=== PATIENT | male | born 1940 | race Caucasian/White ===

== ENCOUNTER 2020-07-20 13:20 | Inpatient (IN) | payer OTHER, MEDICARE ==
[~2020-07-20] VITALS: Ht 170.1 cm; Wt 100.9 kg
--- NOTE | 2020-07-20 13:56 | ED General ---
General Chief Complaint: Abdominal/GI Problems Stated Complaint: BLOODY SPUTUM, BLACK STOOL History of Present Illness Date Seen by Provider: Jul 20, 2020 Time Seen by Provider: 13:51 Initial Comments 79-year-old male Presents with the following constellation of concerns he said he coughed up some blood tinged mucus today though he is not coughing any more than normal and is not short of breath he notes that he had some black material in his stools starting 2 days ago he does have a hemorrhoid didn't see any red blood he denies any history of GI bleeding on further questioning he has a couple purplish areas on his tongue and inside his right cheek that he's noticed but no bleeding in the mouth or nose bleeds [facility] denies knowledge of any leukemia or blood disorder he says he is on a whole slew medicines none of which are blood thinners is a diabetic on oral meds some blood pressure medication he can't tell me more specifics about his history denies fever or any increased cough has chronic pain in his right knee and both hips which has been bothering him quite a bit c/o has not slept well recently he's had splotchy red areas on his legs and easy bruising he feels for approximately 2 weeks denies alcohol use denies receiving chemotherapy or radiation treatment, denies any new prescriptions that we still don't know his meds Allergies and Home Medications Allergies Coded Allergies: No Known Drug Allergies (Unverified , 07/20/20) Patient Home Medication List Home Medication List Reviewed: Yes Review of Systems Review of Systems Constitutional: no symptoms reported EENTM: other (purple areas on tongue and inside right cheek) Respiratory: cough (baseline no different than usual), other (describes hemoptysis) Cardiovascular: no symptoms reported; No chest pain, No palpitations, No syncope Gastrointestinal: No abdominal pain; melena; No nausea, No vomiting; other (says he passed some black stool a few days ago it's mostly cleared at this point) Genitourinary: no symptoms reported Musculoskeletal: other (chronic pain knees and hips) Skin: other (claims diffuse reddened spots especially his legs and easy bruising) Past Rslnmtp-Cjbotw-Eiymwh Hx Patient Social History Recent Foreign Travel: No Contact w/Someone Who Travel: No Physical Exam Vital Signs Capillary Refill : Height, Weight, BMI Height: '" Weight: lbs. oz. kg; BMI Method: General Appearance: No Apparent Distress, Other (very des complexion protruberant abdomen which patient states is baseline) Neck: Supple Respiratory: Lungs Clear Cardiovascular: Regular Rate, Rhythm, Systolic Murmur, Other (at 10 sternal border patient says he's had for many years) Gastrointestinal: Normal Bowel Sounds, Non Tender, Soft, Distended (patient states is baseline, could not appreciate any [place] and a megaly all of the abdomen is rather tight and protuberant he has a small umbilical hernia nontender) Rectal: Normal Exam, Other (stool is brown but heme tested positive) Progress/Results/Core Measures Suspected Sepsis SIRS Temperature: Pulse: Respiratory Rate: Laboratory Tests 07/20/20 13:35: White Blood Count 7.6 Blood Pressure / Mean: Laboratory Tests 07/20/20 13:35: Creatinine 0.69, INR Comment 1.1, Platelet Count 0*L, Total Bilirubin 1.1H Results/Orders Lab Results Laboratory Tests Test 07/20/20 13:35 07/20/20 13:39 Range/Units White Blood Count 7.6 4.3-11.0 10^3/uL Red Blood Count 3.37 L 4.35-5.85 10^6/uL Hemoglobin 10.3 L 13.3-17.7 G/DL Hematocrit 31 L 40-54 % Mean Corpuscular Volume 91 80-99 FL Mean Corpuscular Hemoglobin 31 25-34 PG Mean Corpuscular Hemoglobin Concent 34 32-36 G/DL Red Cell Distribution Width 15.0 H 10.0-14.5 % Platelet Count 0 *L 130-400 10^3/uL Mean Platelet Volume 7.4-10.4 FL Immature Granulocyte % (Auto) 2 % Neutrophils (%) (Auto) 75 42-75 % Lymphocytes (%) (Auto) 7 L 12-44 % Monocytes (%) (Auto) 7 0-12 % Eosinophils (%) (Auto) 9 0-10 % Basophils (%) (Auto) 1 0-10 % Neutrophils # (Auto) 5.7 1.8-7.8 X 10^3 Lymphocytes # (Auto) 0.6 L 1.0-4.0 X 10^3 Monocytes # (Auto) 0.5 0.0-1.0 X 10^3 Eosinophils # (Auto) 0.7 H 0.0-0.3 10^3/uL Basophils # (Auto) 0.0 0.0-0.1 10^3/uL Immature Granulocyte # (Auto) 0.1 0.0-0.1 10^3/uL Neutrophils % (Manual) 77 % Lymphocytes % (Manual) 9 % Monocytes % (Manual) 8 % Eosinophils % (Manual) 2 % Basophils % (Manual) 1 % Metamyelocytes % 2 % Band Neutrophils 1 % Nucleated Red Blood Cells 1 Platelet Estimate 0 Polychromasia SLIGHT Prothrombin Time 14.6 12.2-14.7 SEC INR Comment 1.1 0.8-1.4 Sodium Level 133 L 135-145 MMOL/L Potassium Level 4.1 3.6-5.0 MMOL/L Chloride Level 100 98-107 MMOL/L Carbon Dioxide Level 23 21-32 MMOL/L Anion Gap 10 5-14 MMOL/L Blood Urea Nitrogen 23 H 7-18 MG/DL Creatinine 0.69 0.60-1.30 MG/DL Estimat Glomerular Filtration Rate > 60 BUN/Creatinine Ratio 33 Glucose Level 153 H 70-105 MG/DL Calcium Level 8.8 8.5-10.1 MG/DL Corrected Calcium 8.6 8.5-10.1 MG/DL Total Bilirubin 1.1 H 0.1-1.0 MG/DL Aspartate Amino Transf (AST/SGOT) 31 5-34 U/L Alanine Aminotransferase (ALT/SGPT) 24 0-55 U/L Alkaline Phosphatase 61 40-136 U/L Total Protein 6.8 6.4-8.2 GM/DL Albumin 4.2 3.2-4.5 GM/DL Glucometer 161 H 70-110 MG/DL My Orders Orders - LESLEE DE LA PAZ MD Iv Heplock-Insert (Order) (07/20/20 13:33) Cbc With Automated Diff (07/20/20 13:33) Protime With Inr (07/20/20 13:33) Comprehensive Metabolic Panel (07/20/20 13:33) Occult Blood Stool (07/20/20 13:36) Chest Pa/Lat (2 View) (07/20/20 13:50) Manual Differential (07/20/20 13:35) Vital Signs/I&O Capillary Refill : Progress Note : Progress Note Hemoglobin is 10.3 white blood count 7500 according to our lab his platelet count is 0 Chemistries - glucose 161 sodium 133 renal function normal creatinine 0.69 chest x-ray has been read as normal Assessment - severe thrombocytopenia with petechiae purpura suggestion of mild GI bleeding and hemoptysis this is a new finding cause is unknown at this time Patient's vital signs are stable he is not actively bleeding at this time He requests to go to the [facility] call [facility] to the [facility] to the charge nurse awaiting response from hospitalist Charge nurse [facility] calls back the hospitalist there does not feel they can provide the care necessary in this case they checked with the [facility] and were told there are no beds available so we are to revert back to the civilian system They said that wherever he is admitted should call them back within 48 hours to let them know about his hospitalization to secure payment Patient fine with staying local, will check with [place] hospitalist about potential admission pt accepted to medical floor [place] [facility] Departure Communication (Admissions) Time/Spoke to Admitting Phy: 15:03 Impression Primary Impression: Thrombocytopenia Disposition: ADMITTED INPATIENT Condition: Stable Admissions Decision to Admit Reason: Admit from ER (General) Decision to Admit/Date: Jul 20, 2020 Time/Decision to Admit Time: 15:04 Departure-Patient Inst. Referrals: NO,LOCAL PHYSICIAN (PCP/Family) Primary Care Physician LESLEE DE LA PAZ MD Jul 20, 2020 13:56
[2020-07-20 14:02] LABS: INR 1.1 (0.8-1.4); PROTHROMBIN TIME PATIENT 14.6 SEC (12.2-14.7)
[2020-07-20 14:06] LABS: WHITE BLOOD COUNT 7.6 10^3/uL (4.3-11.0)
[2020-07-20 14:07] LABS: HEMATOCRIT 31 % (40-54); HEMOGLOBIN 10.3 G/DL (13.3-17.7); MEAN CORPUSCULAR HEMOGLOBIN 31 PG (25-34); MEAN CORPUSCULAR HGB CONC 34 G/DL (32-36); MEAN CORPUSCULAR VOLUME 91 FL (80-99)
[2020-07-20 14:08] LABS: BASOPHILS % (AUTO) 1 % (0-10); EOSINOPHILS % (AUTO) 9 % (0-10); LYMPHOCYTES % (AUTO) 7 % (12-44); MONOCYTES % (AUTO) 7 % (0-12); NEUTROPHILS % (AUTO) 75 % (42-75); PLATELET COUNT 0 10^3/uL (130-400)
[2020-07-20 14:09] LABS: EOSINOPHILS # (AUTO) 0.7 10^3/uL (0.0-0.3); LYMPHOCYTES # (AUTO) 0.6 X 10^3 (1.0-4.0); MONOCYTES # (AUTO) 0.5 X 10^3 (0.0-1.0); NEUTROPHILS # (AUTO) 5.7 X 10^3 (1.8-7.8)
--- NOTE | 2020-07-20 14:14 | Diagnostic Imaging Report ---
INDICATION: Hemoptysis. FINDINGS: There is no focal infiltrate, failure, effusion, or pneumothorax. IMPRESSION: No acute appearing abnormality. Dictated by: Dictated on workstation # [id number]
[2020-07-20 14:17] LABS: ALANINE AMINOTRANSFERASE 24 U/L (0-55); ALBUMIN 4.2 GM/DL (3.2-4.5); ALKALINE PHOSPHATASE 61 U/L (40-136); BILIRUBIN,TOTAL 1.1 MG/DL (0.1-1.0); BUN/CREATININE RATIO 33; CALCIUM 8.8 MG/DL (8.5-10.1); CARBON DIOXIDE 23 MMOL/L (21-32); CHLORIDE 100 MMOL/L (98-107); CREATININE SERUM 0.69 MG/DL (0.60-1.30); GFR ESTIMATED > 60; GLUCOSE 153 MG/DL (70-105); POTASSIUM 4.1 MMOL/L (3.6-5.0); SODIUM 133 MMOL/L (135-145); TOTAL PROTEIN 6.8 GM/DL (6.4-8.2)
[2020-07-20 14:18] LABS: BAND NEUTROPHILS 1 %; BASOPHILS % (MANUAL) 1 %; EOSINOPHILS % (MANUAL) 2 %; LYMPHOCYTES % (MANUAL) 9 %; METAMYELOCYTES % 2 %; MONOCYTES % (MANUAL) 8 %; NEUTROPHILS % (MANUAL) 77 %; NUCLEATED RED BLOOD CELLS 1
[2020-07-20 14:19] LABS: PLATELET ESTIMATE 0; POLYCHROMASIA SLIGHT
[2020-07-20 18:00] VITALS: BP 158/77
[2020-07-20] MEDS ORDERED: ACETAMINOPHEN 325 MG TABLET PO PRN (18:00)
[2020-07-20] MEDS ORDERED: ONDANSETRON 4 MG (ZOFRAN) ORAL DISSOLVE TAB PO PRN (18:00)
[2020-07-20] MEDS ORDERED: BISACODYL 10 MG SUPP (DULCOLAX) PR PRN (18:00)
[2020-07-20] MEDS ORDERED: ANTACID SUSP 30 ML UDC (MYLANTA) PO PRN (18:00)
[2020-07-20] MEDS ORDERED: predniSONE 20 MG TAB PO NR (18:00)
[2020-07-20] MEDS ORDERED: ONDANSETRON 4 MG/2 ML (SDV) Z0FRAN IV PRN (18:00)
[2020-07-20] MEDS ORDERED: polyethylene glycoL POWDER 17 GM (MIRALAX) PACK PO PRN (18:00)
--- NOTE | 2020-07-20 18:00 | NUR ---
Atif Saldana admitted to room 427-1, with an admitting diagnosis of thrombocytopenia, on 07/20/20 from [place] via , accompanied by .ATIF SALDANA introduced to surroundings, call light, bed controls, phone, TV, temperature control, lights, meal times, smoking policy, visitor policy, side rail policy, bathrooms and showers. Patient Rights given to patient in the handbook.ATIF SALDANA verbalizes understanding that [facility] is not responsible for the loss or damage to any personal effects or valuables that are kept in the patients posession during their hospitalization. ATIF SALDANA verbalizes understanding of Interdisciplinary Patient Education. Patient and/or family were informed about the Rapid Response Team and its purpose.
[2020-07-20 18:03] LABS: BASOPHILS % (AUTO) 1 % (0-10); HEMATOCRIT 30 % (40-54); HEMOGLOBIN 10.2 g/dL (13.3-17.7); MEAN CORPUSCULAR HGB CONC 34 g/dL (32-36); MONOCYTES # (AUTO) 0.5 10^3/uL (0.0-1.0)
[2020-07-20 18:06] LABS: ABSOLUTE RETIC # 230 10e9/uL (24-90); EOSINOPHILS # (AUTO) 0.1 10^3/uL (0.0-0.3); EOSINOPHILS % (AUTO) 1 % (0-10); LYMPHOCYTES # (AUTO) 0.6 10^3/uL (1.0-4.0); LYMPHOCYTES % (AUTO) 7 % (12-44); MEAN CORPUSCULAR HEMOGLOBIN 31 pg (25-34); MEAN CORPUSCULAR VOLUME 92 fL (80-99); MONOCYTES % (AUTO) 6 % (0-12); NEUTROPHILS # (AUTO) 6.5 10^3/uL (1.8-7.8); NEUTROPHILS % (AUTO) 83 % (42-75); RETICULOCYTE % 6.99 % (0.50-2.40); WHITE BLOOD COUNT 7.9 10^3/uL (4.3-11.0)
[2020-07-20 18:12] LABS: PLATELET COUNT 1 10^3/uL (130-400)
--- NOTE | 2020-07-20 18:13 | NUR ---
Dr. Baldwin notified at this time of critical lab result of platelets 1.0 No further orders at this time.
[2020-07-20 18:16] LABS: BAND NEUTROPHILS 0 %; BASOPHILS % (MANUAL) 0 %; EOSINOPHILS % (MANUAL) 1 %; LYMPHOCYTES % (MANUAL) 3 %; MONOCYTES % (MANUAL) 4 %; NEUTROPHILS % (MANUAL) 92 %; RBC MORPH NORMAL
--- NOTE | 2020-07-20 18:28 | History & Physical-Hospitalist ---
History of Present Illness HPI/Chief Complaint Atif Saldana is an 79-year-old male with past medical history of hypertension, diabetes, BPH, GERD, seizure disorder, osteoarthritis, who presented with abnormal bleeding. He reports that he coughed up some blood this morning. He says it was dark red and like a big clot. He also reports having black stools. He says that his gums were bleeding a little bit. He has a new rash on his legs. He denies any fevers or chills. He denies any headache or vision changes. He denies any chest pain. He denies any shortness of breath or cough. He denies any abdominal pain. He denies any nausea or vomiting. He denies any diarrhea. He does not take any blood thinners. He does not take aspirin. Source: patient Exam Limitations: no limitations Date Seen 07/20/20 Time Seen by a Provider: 17:30 Attending Physician Kaela Lyn MD PCP Jose Kennedy MD Referring Physician Date of Admission Jul 20, 2020 at 17:25 Home Medications & Allergies Home Medications Reviewed patient Home Medication Reconciliation performed by pharmacy medication reconciliations electrical cad technician and/or nursing. Patients Allergies have been reviewed. Allergies Allergies Coded Allergies No Known Drug Allergies (Unverified07/20/20) Past Dzrcjxc-Obopkv-Ljcrhf Hx Past Med/Social Hx: Reviewed Nursing Past Med/Soc Hx Patient Social History Alcohol Use: Occasionally Uses Recreational Drug Use: No Smoking Status: Never a Smoker 2nd Hand Smoke Exposure: No Recent Foreign Travel: No Contact w/other who traveled: No Recent Hopitalizations: No Recent Infectious Disease Expo: No Immunizations Up To Date Date of Pneumonia Vaccine: Jul 20, 2017 Seasonal Allergies Seasonal Allergies: No Past Medical History Surgeries: Appendectomy, Orthopedic Cardiac: High Cholesterol, Hypertension Genitourinary: Benign Prostatic Hyperpl Gastrointestinal: Abdominal Hernia, Gastroesophageal Reflux Musculoskeletal: Arthritis Endocrine: Diabetes, Non-Insulin dep Cancer: Skin Psychosocial: Anxiety History of Blood Disorders: No Review of Systems Constitutional: no symptoms reported EENTM: no symptoms reported Respiratory: hemoptysis Cardiovascular: no symptoms reported Gastrointestinal: melena Genitourinary: no symptoms reported Musculoskeletal: no symptoms reported Skin: rash Psychiatric/Neurological: No Symptoms Reported Physical Exam Physical Exam Vital Signs Vital Signs - First Documented 07/20/20 13:25 Temp 36.0 Pulse 75 Resp 16 B/P (MAP) 163/77 (105) Pulse Ox 97 O2 Delivery Room Air Capillary Refill : Less Than 3 Seconds Height, Weight, BMI Height: '" Weight: lbs. oz. kg; 37.49 BMI Method: General Appearance: No Apparent Distress, Obese HEENT: PERRL/EOMI, Moist Mucous Membranes Respiratory: Lungs Clear, Normal Breath Sounds, No Respiratory Distress Cardiovascular: Regular Rate, Rhythm, No Edema, No Murmur Gastrointestinal: Normal Bowel Sounds, Non Tender, Soft Extremity: Non Tender, No Pedal Edema Neurologic/Psychiatric: Alert, Oriented x3, No Motor/Sensory Deficits, Normal Mood/Affect Skin: Petechia Results Results/Procedures Labs Laboratory Tests 07/20/20 13:35 07/20/20 17:50 Patient resulted labs reviewed. Imaging: Reviewed Imaging Report Assessment/Plan Admission Diagnosis Acute idiopathic thrombocytopenic purpura Admission Status: Inpatient Order (span 2 midnights) Reason for Inpatient Admission: ITP requiring IVIG and high-dose steroid therapy Assessment and Plan Acute ITP Platelets undetectable New petechial rash No other significant lab abnormalities Hematology consulted, appreciate assistance Peripheral smear on arrival showed no platelets, no blasts, no schistocytes, consistent with ITP Begin prednisone 80 mg daily Begin IVIG 60 g daily T2DM Sliding scale insulin HTN Continue lisinopril BPH Continue Flomax Seizure disorder Continue primidone DVT Prophylaxis: contraindicated due to severe thrombocytopenia Diagnosis/Problems Diagnosis/Problems (1) Acute idiopathic thrombocytopenic purpura Status: Acute (2) Normocytic anemia Status: Acute (3) HTN (hypertension) Status: Chronic (4) T2DM (type 2 diabetes mellitus) Status: Chronic (5) BPH (benign prostatic hyperplasia) Status: Chronic (6) GERD (gastroesophageal reflux disease) Status: Chronic (7) Seizure disorder Status: Chronic Clinical Quality Measures DVT/VTE Risk/Contraindication: Risk Factor Score Per Nursin RFS Level Per Nursing on Admit: 2=Moderate KAELA LYN MD Jul 20, 2020 18:28
[2020-07-20] MEDS ORDERED: FLU QUAD HIGH DOSE 240 MCG/0.7 ML 2020-21 (FLUZONE) IM ONE (18:30)
[2020-07-20] MEDS: TAMSULOSIN 0.4 MG (FLOMAX) CAP PO SCH (18:36)
[2020-07-20] MEDS ORDERED: IVIG IV SCH ×2 (19:00)
[2020-07-20 20:12] VITALS: BP 181/91
--- NOTE | 2020-07-20 20:25 | NUR ---
Dr. Golden notified of increased BP at 181/91 with hr at 80 and that pt takes Lisinopril 10mg daily. New order rec to give one time dose of Norvasc 5mg po and Clonidine 0.1mg po q 4 hrs prn SBP > 170.
[2020-07-20] MEDS ORDERED: amLODIPine 5 MG (NORVASC) TAB PO ONE (20:30)
[2020-07-20] MEDS ORDERED: amLODIPine 5 MG (NORVASC) TAB ONE (20:31)
[2020-07-20] MEDS ORDERED: PRIMIDONE 50 MG TAB (MYSOLINE) PO ONE (20:33)
[2020-07-20] MEDS: SENNOSIDES 8.6 MG (SENOKOT) TAB PO SCH (20:40)
[2020-07-20] MEDS: PRIMIDONE 50 MG TAB (MYSOLINE) PO SCH (20:40)
[2020-07-20] MEDS: DOCUSATE SODIUM 100 MG (COLACE) CAP PO SCH (20:42)
[2020-07-20] MEDS: IMMUNE GLOBULIN IV SCH (20:45)
[2020-07-20] MEDS: inSUlin ASPART (NovoLOG) 1 UNIT/0.01 ML (CHARGE PER UNIT) SC SCH (20:50)
[2020-07-20 20:54] VITALS: BP 162/88
[2020-07-20 21:30] VITALS: BP 170/87
[2020-07-20 22:00] VITALS: BP 183/88
--- NOTE | 2020-07-20 22:03 | NUR ---
[facility] asked for clarification that Dr. Golden wanted Clonidine PRN ordered for HTN. Pharmacists states that Hydralazine is better option for an 79 year old because of risk for rebound HTN. Dr. Golden clarified to use Clonidine PRN for SBP > 170. [facility] notified.
[2020-07-20] MEDS: cloNIDine 0.1 MG (CATAPRES) TAB PO PRN (22:11)
[2020-07-20] MEDS ORDERED: METHYL SALICYLATE TOP (22:49)
[2020-07-20] MEDS ORDERED: FURO20TA4 PO (22:49)
[2020-07-20] MEDS ORDERED: LISI-552 PO (22:49)
[2020-07-20] MEDS ORDERED: IBUP-1780 PO (22:49)
[2020-07-20] MEDS ORDERED: MENTHOL TOP (22:49)
[2020-07-20] MEDS ORDERED: METF-397 PO (22:58)
[2020-07-20] MEDS ORDERED: PRIM50TA33 PO (22:58)
[2020-07-20] MEDS ORDERED: OMEP20CA18 PO (22:58)
[2020-07-20 23:00] VITALS: BP 169/92
[2020-07-20] MEDS ORDERED: SILD100T67 PO (23:14)
[2020-07-20] MEDS ORDERED: TMSL.4C PO (23:20)
[2020-07-21] VITALS (14 sets, daily range): BP systolic 132–196; BP diastolic 67–95
[2020-07-21] MEDS: MELATONIN 3 MG TABLET PO PRN (00:13)
[2020-07-21] MEDS: inSUlin ASPART (NovoLOG) 1 UNIT/0.01 ML (CHARGE PER UNIT) SC SCH ×4 (05:20→20:59)
[2020-07-21 06:25] LABS: BASOPHILS % (AUTO) 0 % (0-10); EOSINOPHILS % (AUTO) 0 % (0-10); HEMATOCRIT 27 % (40-54); HEMOGLOBIN 9.1 g/dL (13.3-17.7); LYMPHOCYTES # (AUTO) 0.3 10^3/uL (1.0-4.0); LYMPHOCYTES % (AUTO) 5 % (12-44); MEAN CORPUSCULAR HEMOGLOBIN 31 pg (25-34); MEAN CORPUSCULAR HGB CONC 34 g/dL (32-36); MEAN CORPUSCULAR VOLUME 93 fL (80-99); MEAN PLATELET VOLUME 12.5 fL (9.0-12.2); MONOCYTES # (AUTO) 0.2 10^3/uL (0.0-1.0); MONOCYTES % (AUTO) 4 % (0-12); NEUTROPHILS # (AUTO) 5.8 10^3/uL (1.8-7.8); NEUTROPHILS % (AUTO) 89 % (42-75); WHITE BLOOD COUNT 6.5 10^3/uL (4.3-11.0)
[2020-07-21 06:30] LABS: PLATELET COUNT 18 10^3/uL (130-400)
[2020-07-21 06:41] LABS: CHLORIDE 99 MMOL/L (98-107); POTASSIUM 4.5 MMOL/L (3.6-5.0)
[2020-07-21 06:42] LABS: CALCIUM 8.2 MG/DL (8.5-10.1); GLUCOSE 206 MG/DL (70-105)
[2020-07-21 06:44] LABS: CARBON DIOXIDE 20 MMOL/L (21-32)
[2020-07-21 06:46] LABS: CREATININE SERUM 0.77 MG/DL (0.60-1.30); GFR ESTIMATED > 60
[2020-07-21 06:47] LABS: BUN/CREATININE RATIO 30
[2020-07-21 06:49] LABS: SODIUM 125 MMOL/L (135-145)
[2020-07-21] MEDS: PRIMIDONE 50 MG TAB (MYSOLINE) PO SCH ×2 (09:04→17:32)
[2020-07-21] MEDS: DOCUSATE SODIUM 100 MG (COLACE) CAP PO SCH ×2 (09:04→20:07)
[2020-07-21] MEDS: predniSONE 20 MG TAB PO SCH (09:04)
[2020-07-21] MEDS: SENNOSIDES 8.6 MG (SENOKOT) TAB PO SCH ×2 (09:04→20:07)
[2020-07-21] MEDS: PANTOPRAZOLE 40 MG (PROTONIX) TAB PO SCH (09:04)
[2020-07-21] MEDS: lisINopril 40 MG (PRINIVIL) TABLET PO SCH (09:06)
--- NOTE | 2020-07-21 09:30 | NUR ---
Per Dr. Baldwin's request, I notified Nurse Garcia of reports from [facility] that they were on diversion for this patient and were unable to accept him. They reported to Dr. Baldwin that they would be willing to authorize admission to our hospital for the needed medical treatment but would need to be notified of admission and have clinical sent to them within 48hr.
--- NOTE | 2020-07-21 10:20 | CONSULTATION REPORT ---
DATE OF SERVICE: 07/21/2020 The patient is admitted to room 427. PHYSICIAN REQUESTING CONSULTATION: Dr. Kaela [facility]. PRIMARY PHYSICIAN: Dr. Jose Kennedy. IMPRESSION: 1. An 79-year-old male admitted to the hospital with hemoptysis, bleeding gums and melena of few days' duration. 2. Evaluation at [facility] showed severe thrombocytopenia with platelet count undetectable. 3. No recent insect bites, new medications or viral illnesses. 4. Clinically consistent with acute ITP. 5. Agree with inpatient admission because of acute ITP and evidence of bleeding. 6. Start the patient on IVIG 0.5 grams per kilogram daily x2. 7. Start the patient on prednisone 1 mg/kg daily morning with food. 8. Monitor CBC serially. 9. If the patient develops symptomatic anemia, he may need packed red blood cell transfusion. 10. May obtain serum iron studies to rule out secondary iron deficiency due to bleeding. BRIEF HISTORY: The patient is an 79-year-old male who started noticing a rash in his lower extremities several days before admission. He also noticed dark stools for a few days and on the day of admission and complained of bleeding from his gums and coughed up blood. Because of this, he went to [facility] for evaluation. He was noted to have severe thrombocytopenia with platelets undetectable. Because of this, he was transferred to [facility] for inpatient management. PAST MEDICAL HISTORY: Significant for hypertension, diabetes mellitus type 2, gastroesophageal reflux disease, seizure disorder and osteoarthritis. PAST SURGICAL HISTORY: Include appendectomy and orthopedic surgery. 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 SOCIAL HISTORY: The patient lives in [place], [place]. No history of tobacco use, and uses alcohol socially, but no history of binge drinking. No history of recreational drug use. He has served in the , but denied any exposure to chemicals or radiation. FAMILY HISTORY: Unremarkable with no significant hematologic problems or malignancies that the patient knows of. PHYSICAL EXAMINATION: GENERAL: Showed elderly male, moderately obese, awake and oriented, in no acute distress. VITAL SIGNS: Temperature was 36.4 degrees centigrade, pulse rate of 62, respirations 20, blood pressure 153/69 with oxygen saturation of 99% on room air. HEENT: Normocephalic with alopecia. Extraocular muscles intact, conjunctivae pink, oral mucosa moist with purpura present on his tongue and mucosal surfaces. No active bleeding noted. NECK: Supple, with no JVD. No cervical, supraclavicular or axillary lymphadenopathy palpable. CHEST: Symmetrical. LUNGS: Fairly clear to auscultation without wheezes or rales. CARDIOVASCULAR: Regular in rate and rhythm. No murmurs or gallops heard. ABDOMEN: Obese, soft, nontender with no hepatosplenomegaly or other masses palpable. EXTREMITIES: Showed no edema. Extensive petechiae noted in both lower extremities with coalescence in some areas. NEUROLOGIC: Showed no focal motor deficits. LABORATORY DATA: CBC done at [facility] showed WBC 7.6, hemoglobin 10.3, MCV 91, platelet count zero. Neutrophil count was 5.7, lymphocyte count 0.6, monocyte count 0.5 and eosinophil count 0.7. Repeat done at the time of admission to [facility] same evening showed WBC 7.9, hemoglobin 10.2 and platelet count 1000. Today morning CBC showed white count of 6.5, hemoglobin 9.1 and platelet count of 18,000 with neutrophil count 5.8 and lymphocyte count 0.3. The peripheral smear done at the time of admission to the hospital was reviewed by me. This showed severe thrombocytopenia with practically no platelets. Neutrophils appeared morphologically unremarkable with adequate granulation. No immature cells identified. Lymphocytes appeared somewhat reactive. Red blood cell morphology was unremarkable except for several teardrop cells and few polychromatophilic cells. Reticulocyte count at the time of admission was elevated at 230,000, probably related to bleeding. No schistocytes are identified. Chemistry panel at the time of admission showed sodium level of 133 with the rest of the electrolytes within normal limits. BUN was 23 and creatinine 0.69 with GFR more than 60 mL per minute. Nonfasting glucose was 153. Liver function studies were within normal limits except total bilirubin level of 1.1. Thank you for allowing me to participate in this patient's care. I will follow the patient with you and make appropriate recommendations. Job ID: [id number] DocumentID: [id number] Dictated Date: 07/21/2020 09:39:56 General Education Professor Date: 07/21/2020 10:19:41 Dictated By: GENARO MARK MD [facility]
[2020-07-21] MEDS ORDERED: METH57CR TP (10:49)
--- NOTE | 2020-07-21 10:50 | NUR ---
SPOKE WITH THE PT (THERE WAS A COPY OF HIS [facility] RECORDS ON HIS CHART) TO COMPLETE THE MED REC THE FOLLOWING ARE FILL DATES FROM THE [facility]: 04-26-2020 METFORMIN 500MG #180/90DS 05-07-2020 OMEPRAZOLE 20MG #180/90DS 05-07-2020 LISINOPRIL 20MG #45/90DS 05-08-2020 SILDENAFIL 100MG #12/90DS 05-08-2020 TAMSULOSIN 0.4MG #90/90DS 05-10-2020 FUROSEMIDE 20MG #30/60DS 05-10-2020 PRIMIDONE 50MG #270/90DS 06-23-2020 IBUPROFEN 800MG #180/60DS 06-24-2020 MENTHOL/M-SALICYLATE 10-15% #90/30DS PT DENIES TAKING ANY OTC MEDS. ON THE MED LIST IS HAS TRAMADOL 50MG THAT HAS A STATUS PENDING, WHEN I SPOKE WITH THE PT HE DENIES TAKING
--- NOTE | 2020-07-21 14:07 | NUR ---
"RD ASSESSMENT PMHx: HTN; DM; BPH; GERD; OA; seizure disorder; hypercholesterolemia; PT INTERACTION: Pt was awake and pleasant during nutrition assessment. Pt states current appetite is fair. Note avg PO intake 100% x2meal, per chart review. Pt states following a regular diet at home, and has no issues with chewing/swallowing food. Pt states some recent issues with constipation. Note last BM was 07/21, and pt currently on bowel regimen of colace BID; and senna BID, per chart review. Pt states no recent wt changes. Note unable to determine recent wt hx, per chart review. Pt states current DM management is good. Note unable to determine recent HbA1c, per chart review. ABNORMAL NUTRITION-RELATED LAB VALUES LOW: Na 125; Ca 8.2; HIGH: BUN 20; glu 206 Est. kcal needs: 1625 kcal | 15 kcal/kg Est. Pro needs: 87 g Pro | 0.8 g Pro/kg PES STATEMENT: Given current PO intake and appetite, no nutrition diagnosis at this time (NO-1.1) INTERVENTION: Continue with current diet order of CHO 60g/m 3snack diet. Offered and provided diet education on DM management. Provided reinforcement from previous educations (previous educations not given by this RD) on CHO counting and portion control. Pt verbalized understanding of information provided. Will continue to follow and reassess as pt needs, intake, and status change. Maninder Ge, MS RD LD"
[2020-07-21] MEDS ORDERED: CATHETER FLUSH 10 ML SYR IV PRN (16:00)
--- NOTE | 2020-07-21 16:07 | Progress Note - Hospitalist ---
Subjective HPI/CC On Admission Date Seen by Provider: Jul 21, 2020 Time Seen by Provider: 10:50 Atif Saldana is an 79-year-old male with past medical history of hypertension, diabetes, BPH, GERD, seizure disorder, osteoarthritis, who presented with abnormal bleeding. He reports that he coughed up some blood this morning. He says it was dark red and like a big clot. He also reports having black stools. He says that his gums were bleeding a little bit. He has a new rash on his legs. He denies any fevers or chills. He denies any headache or vision changes. He denies any chest pain. He denies any shortness of breath or cough. He denies any abdominal pain. He denies any nausea or vomiting. He denies any diarrhea. He does not take any blood thinners. He does not take aspirin. Subjective/Events-last exam he has not had any bleeding. He denies any melena. He did cough up some dark s putum. He has no other complaints or concerns. Objective Exam Vital Signs Vital Signs Date Time Temp Pulse Resp B/P (MAP) Pulse Ox O2 Delivery O2 Flow Rate FiO2 07/21/20 12:00 36.5 67 18 132/82 (99) 96 Room Air Capillary Refill : Less Than 3 Seconds General Appearance: No Apparent Distress, Obese Respiratory: Lungs Clear, Normal Breath Sounds, No Respiratory Distress Cardiovascular: Regular Rate, Rhythm, No Edema, No Murmur Gastrointestinal: Normal Bowel Sounds, Non Tender, Soft Extremity: Normal Inspection, Non Tender, No Pedal Edema Neurologic/Psychiatric: Alert, Oriented x3, No Motor/Sensory Deficits, Normal Mood/Affect Skin: Normal Color, Warm/Dry Results/Procedures Lab Laboratory Tests 07/20/20 17:50 07/21/20 06:11 Patient resulted labs reviewed. Imaging: Reviewed Imaging Report Assessment/Plan Assessment and Plan Assess & Plan/Chief Complaint Acute ITP Hematology consulted, appreciate assistance Peripheral smear on arrival showed no platelets, no blasts, no schistocytes, consistent with ITP platelets increasing, 18 this morning Continue prednisone 80 mg daily Continue IVIG 60 g daily Pseudohyponatremia secondary to IVIG, continue to monitor T2DM Sliding scale insulin HTN Continue lisinopril BPH Continue Flomax Seizure disorder Continue primidone DVT Prophylaxis: contraindicated due to severe thrombocytopenia Diagnosis/Problems Diagnosis/Problems (1) Acute idiopathic thrombocytopenic purpura Status: Acute (2) Hyponatremia Status: Acute (3) Normocytic anemia Status: Acute (4) HTN (hypertension) Status: Chronic (5) T2DM (type 2 diabetes mellitus) Status: Chronic (6) BPH (benign prostatic hyperplasia) Status: Chronic (7) GERD (gastroesophageal reflux disease) Status: Chronic (8) Seizure disorder Status: Chronic Clinical Quality Measures DVT/VTE Risk/Contraindication: Risk Factor Score Per Nursin RFS Level Per Nursing on Admit: 2=Moderate KARINE LYN MD Jul 21, 2020 16:07
[2020-07-21] MEDS: TAMSULOSIN 0.4 MG (FLOMAX) CAP PO SCH (17:32)
[2020-07-21] MEDS: IMMUNE GLOBULIN IV SCH (18:51)
[2020-07-21] MEDS: CATHETER FLUSH 10 ML SYR IV SCH (20:08)
[2020-07-22 05:11] VITALS: BP 152/85
[2020-07-22] MEDS: inSUlin ASPART (NovoLOG) 1 UNIT/0.01 ML (CHARGE PER UNIT) SC SCH ×4 (05:21→21:30)
[2020-07-22] MEDS: CATHETER FLUSH 10 ML SYR IV SCH ×3 (05:23→21:31)
[2020-07-22 06:52] LABS: HEMOGLOBIN 8.8 g/dL (13.3-17.7)
[2020-07-22 06:54] LABS: BASOPHILS % (AUTO) 0 % (0-10); EOSINOPHILS # (AUTO) 0.1 10^3/uL (0.0-0.3); EOSINOPHILS % (AUTO) 1 % (0-10); HEMATOCRIT 25 % (40-54); LYMPHOCYTES # (AUTO) 0.8 10^3/uL (1.0-4.0); LYMPHOCYTES % (AUTO) 9 % (12-44); MEAN CORPUSCULAR HEMOGLOBIN 33 pg (25-34); MEAN CORPUSCULAR HGB CONC 35 g/dL (32-36); MEAN CORPUSCULAR VOLUME 94 fL (80-99); MEAN PLATELET VOLUME 12.4 fL (9.0-12.2); MONOCYTES # (AUTO) 0.9 10^3/uL (0.0-1.0); MONOCYTES % (AUTO) 10 % (0-12); NEUTROPHILS # (AUTO) 6.6 10^3/uL (1.8-7.8); NEUTROPHILS % (AUTO) 77 % (42-75); WHITE BLOOD COUNT 8.5 10^3/uL (4.3-11.0)
[2020-07-22 07:03] LABS: PLATELET COUNT 1 10^3/uL (130-400)
[2020-07-22 07:07] LABS: BUN/CREATININE RATIO 35; CALCIUM 7.9 MG/DL (8.5-10.1); CARBON DIOXIDE 19 MMOL/L (21-32); CHLORIDE 98 MMOL/L (98-107); CREATININE SERUM 0.83 MG/DL (0.60-1.30); GFR ESTIMATED > 60; GLUCOSE 142 MG/DL (70-105); POTASSIUM 3.6 MMOL/L (3.6-5.0)
[2020-07-22 07:17] LABS: SODIUM 125 MMOL/L (135-145)
[2020-07-22 07:45] VITALS: BP 154/80
[2020-07-22] MEDS: SENNOSIDES 8.6 MG (SENOKOT) TAB PO SCH ×2 (08:37→19:41)
[2020-07-22] MEDS: lisINopril 40 MG (PRINIVIL) TABLET PO SCH (08:37)
[2020-07-22] MEDS: DOCUSATE SODIUM 100 MG (COLACE) CAP PO SCH ×2 (08:37→19:41)
[2020-07-22] MEDS: PANTOPRAZOLE 40 MG (PROTONIX) TAB PO SCH (08:37)
[2020-07-22] MEDS: predniSONE 20 MG TAB PO SCH (08:37)
[2020-07-22] MEDS: PRIMIDONE 50 MG TAB (MYSOLINE) PO SCH ×2 (08:37→17:16)
[2020-07-22 11:30] VITALS: BP 168/85
--- NOTE | 2020-07-22 13:42 | Progress Note - Hospitalist ---
Subjective HPI/CC On Admission Date Seen by Provider: Jul 22, 2020 Time Seen by Provider: 10:50 Atif Saldana is an 79-year-old male with past medical history of hypertension, diabetes, BPH, GERD, seizure disorder, osteoarthritis, who presented with abnormal bleeding. He reports that he coughed up some blood this morning. He says it was dark red and like a big clot. He also reports having black stools. He says that his gums were bleeding a little bit. He has a new rash on his legs. He denies any fevers or chills. He denies any headache or vision changes. He denies any chest pain. He denies any shortness of breath or cough. He denies any abdominal pain. He denies any nausea or vomiting. He denies any diarrhea. He does not take any blood thinners. He does not take aspirin. Subjective/Events-last exam he reports that he had some mouth and nose bleeding. He reports having a dark stool. He has no other complaints or concerns. Objective Exam Vital Signs Vital Signs Date Time Temp Pulse Resp B/P (MAP) Pulse Ox O2 Delivery O2 Flow Rate FiO2 07/22/20 11:30 36.5 80 18 168/85 (112) 99 Room Air Capillary Refill : Less Than 3 Seconds General Appearance: No Apparent Distress, Obese Respiratory: Lungs Clear, Normal Breath Sounds, No Respiratory Distress Cardiovascular: Regular Rate, Rhythm, No Edema, No Murmur Gastrointestinal: Normal Bowel Sounds, Non Tender, Soft Extremity: Normal Inspection, Non Tender, No Pedal Edema Neurologic/Psychiatric: Alert, Oriented x3, No Motor/Sensory Deficits, Normal Mood/Affect Skin: Normal Color, Warm/Dry Results/Procedures Lab Laboratory Tests 07/22/20 06:20 Patient resulted labs reviewed. Imaging: Reviewed Imaging Report Assessment/Plan Assessment and Plan Assess & Plan/Chief Complaint Acute ITP Hematology consulted, appreciate assistance Peripheral smear on arrival showed no platelets, no blasts, no schistocytes, consistent with ITP platelets decreased, 1 this morning Continue prednisone 80 mg daily s/p IVIG 60 g daily x 2 days may require bone marrow biopsy Pseudohyponatremia secondary to IVIG, continue to monitor T2DM Sliding scale insulin HTN Continue lisinopril BPH Continue Flomax Seizure disorder Continue primidone DVT Prophylaxis: contraindicated due to severe thrombocytopenia Diagnosis/Problems Diagnosis/Problems (1) Acute idiopathic thrombocytopenic purpura Status: Acute (2) Hyponatremia Status: Acute (3) Normocytic anemia Status: Acute (4) HTN (hypertension) Status: Chronic (5) T2DM (type 2 diabetes mellitus) Status: Chronic (6) BPH (benign prostatic hyperplasia) Status: Chronic (7) GERD (gastroesophageal reflux disease) Status: Chronic (8) Seizure disorder Status: Chronic Clinical Quality Measures DVT/VTE Risk/Contraindication: Risk Factor Score Per Nursin RFS Level Per Nursing on Admit: 2=Moderate KARINE LYN MD Jul 22, 2020 13:42
--- NOTE | 2020-07-22 14:13 | NUR ---
CM/SS: Visited with pt as to plan for discharge - Pt is connected with the NH and is seen in the [place] clinic. Plan: To be determined - Pt is from home - and has lived independently in [place] Summary: Pt reports that [facility] [place]. They are the ones who sent him to the ER in [place] and they transferred him to this hospital. Pt reports he was feeling better and that his blood count had come up. However, he indicates that today his numbers has fallen, so he is unsure as to what is going on. Pt reports having had a aneurism in the past and that he received help and was desiree. Pt does not think that he will need anything at time of discharge, he is educated that if he needs something, we will work to set it up at time of discharged. Pt verbalizes understanding. This worker will follow up.
[2020-07-22 16:00] VITALS: BP 170/90
[2020-07-22] MEDS: cloNIDine 0.1 MG (CATAPRES) TAB PO PRN (16:13)
--- NOTE | 2020-07-22 16:58 | Progress Note ---
Standard Progress Note Progress Notes/Assess & Plan Date Seen by a Provider: Jul 22, 2020 Time Seen by a Provider: 16:55 Progress/Assessment & Plan 79-year-old male admitted with severe thrombocytopenia and mucosal bleeding. Clinically consistent with ITP and started on treatment with IVIG 2 days and high-dose steroids. Patient doing better clinically with no obvious bleeding. The oral lesions have disappeared. No new crops of petechiae on the lower extremities. Ecchymosis on both arms and forearms which are old. Lab work reviewed from today with platelet count 1000. Will repeat CBC this evening and CBC with the smear tomorrow morning. If platelet count continues to be low tomorrow, will recommend bone marrow aspiration and biopsy. Will follow patient with you. GENARO MARK Jul 22, 2020 16:58
[2020-07-22 17:13] LABS: HEMATOCRIT 30 % (40-54); HEMOGLOBIN 10.2 g/dL (13.3-17.7); MEAN CORPUSCULAR HEMOGLOBIN 32 pg (25-34); MEAN CORPUSCULAR HGB CONC 34 g/dL (32-36); MEAN CORPUSCULAR VOLUME 93 fL (80-99); WHITE BLOOD COUNT 8.4 10^3/uL (4.3-11.0)
[2020-07-22 17:16] LABS: PLATELET COUNT 1 10^3/uL (130-400)
[2020-07-22] MEDS: TAMSULOSIN 0.4 MG (FLOMAX) CAP PO SCH (17:16)
[2020-07-22 20:00] VITALS: BP 143/81
[2020-07-23] VITALS (12 sets, daily range): BP systolic 119–191; BP diastolic 15–95
[2020-07-23] MEDS: inSUlin ASPART (NovoLOG) 1 UNIT/0.01 ML (CHARGE PER UNIT) SC SCH ×4 (05:01→21:00)
[2020-07-23] MEDS: CATHETER FLUSH 10 ML SYR IV SCH ×3 (05:01→21:12)
[2020-07-23 06:31] LABS: BASOPHILS % (AUTO) 0 % (0-10); EOSINOPHILS # (AUTO) 0.1 10^3/uL (0.0-0.3); EOSINOPHILS % (AUTO) 1 % (0-10); HEMATOCRIT 28 % (40-54); HEMOGLOBIN 9.7 g/dL (13.3-17.7); LYMPHOCYTES # (AUTO) 0.9 10^3/uL (1.0-4.0); LYMPHOCYTES % (AUTO) 10 % (12-44); MEAN CORPUSCULAR HEMOGLOBIN 32 pg (25-34); MEAN CORPUSCULAR HGB CONC 35 g/dL (32-36); MEAN CORPUSCULAR VOLUME 92 fL (80-99); MONOCYTES # (AUTO) 0.9 10^3/uL (0.0-1.0); MONOCYTES % (AUTO) 9 % (0-12); NEUTROPHILS # (AUTO) 7.5 10^3/uL (1.8-7.8); NEUTROPHILS % (AUTO) 78 % (42-75); WHITE BLOOD COUNT 9.6 10^3/uL (4.3-11.0)
[2020-07-23 06:35] LABS: CHLORIDE 97 MMOL/L (98-107); PLATELET COUNT 4 10^3/uL (130-400); POTASSIUM 3.7 MMOL/L (3.6-5.0); SODIUM 127 MMOL/L (135-145)
[2020-07-23 06:36] LABS: CALCIUM 8.3 MG/DL (8.5-10.1); GLUCOSE 137 MG/DL (70-105)
[2020-07-23 06:38] LABS: CARBON DIOXIDE 20 MMOL/L (21-32)
[2020-07-23 06:40] LABS: CREATININE SERUM 0.87 MG/DL (0.60-1.30); GFR ESTIMATED > 60
[2020-07-23 06:41] LABS: BUN/CREATININE RATIO 34
[2020-07-23 06:58] LABS: BAND NEUTROPHILS 2 %; EOSINOPHILS % (MANUAL) 3 %; LYMPHOCYTES % (MANUAL) 10 %; METAMYELOCYTES % 1 %; MONOCYTES % (MANUAL) 5 %; NEUTROPHILS % (MANUAL) 79 %
[2020-07-23 06:59] LABS: RBC MORPH NORMAL
[2020-07-23] MEDS: lisINopril 40 MG (PRINIVIL) TABLET PO SCH (08:07)
[2020-07-23] MEDS: DOCUSATE SODIUM 100 MG (COLACE) CAP PO SCH ×2 (08:07→20:59)
[2020-07-23] MEDS: predniSONE 20 MG TAB PO SCH (08:07)
[2020-07-23] MEDS: SENNOSIDES 8.6 MG (SENOKOT) TAB PO SCH ×2 (08:07→20:59)
[2020-07-23] MEDS: PRIMIDONE 50 MG TAB (MYSOLINE) PO SCH ×2 (08:07→17:10)
[2020-07-23] MEDS: PANTOPRAZOLE 40 MG (PROTONIX) TAB PO SCH (08:08)
[2020-07-23 13:23] LABS: ABSOLUTE RETIC # 237 10e9/uL (24-90); RETICULOCYTE % 7.95 % (0.50-2.40)
[2020-07-23] MEDS ORDERED: NS IV 1000 ML 1,000 ML IV STA (13:28)
[2020-07-23] MEDS ORDERED: fentaNYL INJECTION 100 MCG/2 ML AMP IVP ONE (13:30)
[2020-07-23] MEDS ORDERED: MIDAZOLAM 2 MG/2 ML (VERSED) VIAL IVP ONE (13:30)
[2020-07-23] MEDS ORDERED: LIDOCAINE 2% 20 ML (XYLOCAINE) VIAL INJ ONE (13:30)
--- NOTE | 2020-07-23 13:33 | Progress Note - Hospitalist ---
Subjective HPI/CC On Admission Date Seen by Provider: Jul 23, 2020 Time Seen by Provider: 10:15 Atif Saldana is an 79-year-old male with past medical history of hypertension, diabetes, BPH, GERD, seizure disorder, osteoarthritis, who presented with abnormal bleeding. He reports that he coughed up some blood this morning. He says it was dark red and like a big clot. He also reports having black stools. He says that his gums were bleeding a little bit. He has a new rash on his legs. He denies any fevers or chills. He denies any headache or vision changes. He denies any chest pain. He denies any shortness of breath or cough. He denies any abdominal pain. He denies any nausea or vomiting. He denies any diarrhea. He does not take any blood thinners. He does not take aspirin. Subjective/Events-last exam He had a nosebleed overnight. He is still been coughing up some blood. He has been having dark stools. He has a headache. He is not having any weakness. He denies any vision changes. He is not having any other complaints or concerns. Objective Exam Vital Signs Vital Signs Date Time Temp Pulse Resp B/P (MAP) Pulse Ox O2 Delivery O2 Flow Rate FiO2 07/23/20 12:00 36.1 72 20 191/86 (121) 93 Room Air Capillary Refill : Less Than 3 Seconds General Appearance: No Apparent Distress, Obese HEENT: PERRL/EOMI, Pharynx Normal Neck: Normal Inspection, Supple Respiratory: Lungs Clear, Normal Breath Sounds, No Respiratory Distress Cardiovascular: Regular Rate, Rhythm, No Edema, Systolic Murmur Gastrointestinal: Normal Bowel Sounds, Non Tender, Soft Extremity: Normal Inspection, Non Tender, No Pedal Edema Neurologic/Psychiatric: Alert, Oriented x3, No Motor/Sensory Deficits, Normal Mood/Affect Skin: Warm/Dry, Petechia Results/Procedures Lab Laboratory Tests 07/22/20 17:06 07/23/20 05:32 Patient resulted labs reviewed. Imaging: Reviewed Imaging Report Assessment/Plan Assessment and Plan Assess & Plan/Chief Complaint Acute ITP Hematology consulted, appreciate assistance Peripheral smear on arrival showed no platelets, no blasts, no schistocytes, consistent with ITP platelets remain critically low, 4 this morning Prednisone 80 mg daily s/p IVIG 60 g daily x 2 days planning for bone marrow biopsy today Pseudohyponatremia secondary to IVIG, continue to monitor T2DM Sliding scale insulin HTN Continue lisinopril BPH Continue Flomax Seizure disorder Continue primidone DVT Prophylaxis: contraindicated due to severe thrombocytopenia Diagnosis/Problems Diagnosis/Problems (1) Acute idiopathic thrombocytopenic purpura Status: Acute (2) Hyponatremia Status: Acute (3) Normocytic anemia Status: Acute (4) HTN (hypertension) Status: Chronic (5) T2DM (type 2 diabetes mellitus) Status: Chronic (6) BPH (benign prostatic hyperplasia) Status: Chronic (7) GERD (gastroesophageal reflux disease) Status: Chronic (8) Seizure disorder Status: Chronic Clinical Quality Measures DVT/VTE Risk/Contraindication: Risk Factor Score Per Nursin RFS Level Per Nursing on Admit: 2=Moderate KARINE LYN MD Jul 23, 2020 13:33
[2020-07-23] MEDS ORDERED: LIDOCAINE 1% INJ 20 ML 20 ML VIAL INJ ONE (13:45)
--- NOTE | 2020-07-23 13:50 | NUR ---
PATIENT TO CT FOR BONE MARROW BIOPSY AT THIS TIME WITH ABHISHEK CALLE. THIS RN WILL ASSUME CARE OF THIS PATIENT WHEN HE ARRIVES BACK TO THIS FLOOR.
--- NOTE | 2020-07-23 14:45 | Pre-Op Note & Conscious Sedat ---
Pre-Operative Progress Note H&P Reviewed The H&P was reviewed, patient examined and no changes noted. Date H&P Reviewed: Jul 23, 2020 Time H&P Reviewed: 13:00 Pre-Op Diagnosis: thrombocytopenia Conscious Sedation Pre-Proced Time 13:00 ASA Score 2 For ASA 3 and 4: Consider anesthesia and medical clearance. Also, for patients with a history of failed moderate sedation consider anesthesia. Airway Lungs Heart ASA score ASA 1: a normal healthy patient ASA 2: a patient with a mild systemic disease (mid diabetes, controlled hypertension, obesity ASA 3: a patient with a severe systemic disease that limits activity (angina, COPD, prior Myocardial infarction) ASA 4: a patient with an incapacitating disease that is a constant threat to life (CHF, renal failure) ASA 5: a moribund patient not expected to survive 24 hrs. (ruptured aneurysm) ASA 6: a declared brain- patient whose organs are being harvested. For emergent operations, add the letter E after the classification Mallampati Classification Grade 2 Sedation Plan Analgesia, Amnesia, Plan communicated to team members, Discussed options with patient/fam, Discussed risks with patient/fam The patient is an appropriate candidate to undergo the planned procedure, sedation, and anesthesia. The patient immediately re-assessed prior to indication. AMY BLACK MD Jul 23, 2020 14:45
--- NOTE | 2020-07-23 15:11 | Diagnostic Imaging Report ---
INDICATION: Thrombocytopenia. TECHNIQUE: Patient was brought to the CT suite and placed on the table in prone position. Axial imaging through the pelvis was performed to evaluate appropriate entry site. The low back was prepped and draped in usual sterile fashion. Procedure was performed utilizing conscious sedation with radiology nursing and constant patient monitoring. Patient was administered 50 mg of fentanyl intravenously and 1 mg of Versed intravenously. Total procedure time was 4 minutes. A small amount of 1% lidocaine was utilized for local anesthesia. Bone marrow biopsy needle was advanced and placed with its tip along the posterior cortex of the right iliac bone. The needle was advanced through the cortex utilizing a bone marrow drill. Two bone marrow aspirates were then obtained. The drill was then reapplied and a bone marrow core biopsy was performed. Needle was withdrawn and hemostasis was obtained using manual compression. Patient tolerated the procedure well and left the department in stable condition. IMPRESSION: Successful CT-guided bone marrow aspiration and biopsy, utilizing conscious sedation. Dictated by: Dictated on workstation # [id number]
--- NOTE | 2020-07-23 16:58 | Progress Note ---
Standard Progress Note Progress Notes/Assess & Plan Date Seen by a Provider: Jul 23, 2020 Time Seen by a Provider: 16:55 Progress/Assessment & Plan 79-year-old male admitted with severe thrombocytopenia and mucosal bleeding. Clinically consistent with ITP and started on treatment with IVIG 2 days and high-dose steroids. Patient doing better clinically with minimal hemoptysis and dark stools. The oral lesions have disappeared. No new crops of petechiae on the lower extremities. Ecchymosis on both arms and forearms which are old. Lab work reviewed from today with platelet count 4000. Will repeat CBC and CMP tomorrow morning. Completed bone marrow aspiration and biopsy today by IR and will await results. Will follow patient with you. GENARO MARK Jul 23, 2020 16:58
[2020-07-23] MEDS: TAMSULOSIN 0.4 MG (FLOMAX) CAP PO SCH (17:10)
[2020-07-23] MEDS: HYDROcodone/APAP 5 MG/325 MG (LORTAB) TAB PO PRN (21:01)
[2020-07-24 03:53] VITALS: BP 128/68
[2020-07-24] MEDS: inSUlin ASPART (NovoLOG) 1 UNIT/0.01 ML (CHARGE PER UNIT) SC SCH ×4 (06:05→20:54)
[2020-07-24] MEDS: CATHETER FLUSH 10 ML SYR IV SCH ×3 (06:05→20:57)
[2020-07-24 06:29] LABS: BASOPHILS % (AUTO) 0 % (0-10); EOSINOPHILS # (AUTO) 0.1 10^3/uL (0.0-0.3); EOSINOPHILS % (AUTO) 1 % (0-10); MEAN CORPUSCULAR HEMOGLOBIN 31 pg (25-34)
[2020-07-24 06:31] LABS: HEMATOCRIT 26 % (40-54); LYMPHOCYTES # (AUTO) 0.9 10^3/uL (1.0-4.0); LYMPHOCYTES % (AUTO) 11 % (12-44); MEAN CORPUSCULAR HGB CONC 35 g/dL (32-36); MEAN CORPUSCULAR VOLUME 91 fL (80-99); MONOCYTES # (AUTO) 0.9 10^3/uL (0.0-1.0); MONOCYTES % (AUTO) 10 % (0-12); NEUTROPHILS # (AUTO) 6.4 10^3/uL (1.8-7.8); NEUTROPHILS % (AUTO) 76 % (42-75); WHITE BLOOD COUNT 8.4 10^3/uL (4.3-11.0)
[2020-07-24 06:41] LABS: PLATELET COUNT 0 10^3/uL (130-400)
[2020-07-24 06:48] LABS: ALANINE AMINOTRANSFERASE 29 U/L (0-55); ALBUMIN 3.3 GM/DL (3.2-4.5); ALKALINE PHOSPHATASE 53 U/L (40-136); BUN/CREATININE RATIO 34; CARBON DIOXIDE 20 MMOL/L (21-32); CHLORIDE 99 MMOL/L (98-107); CREATININE SERUM 0.79 MG/DL (0.60-1.30); GFR ESTIMATED > 60; GLUCOSE 141 MG/DL (70-105); POTASSIUM 3.5 MMOL/L (3.6-5.0); SODIUM 128 MMOL/L (135-145)
[2020-07-24] MEDS: PRIMIDONE 50 MG TAB (MYSOLINE) PO SCH ×2 (07:52→17:13)
[2020-07-24] MEDS: DOCUSATE SODIUM 100 MG (COLACE) CAP PO SCH ×2 (07:52→19:58)
[2020-07-24] MEDS: SENNOSIDES 8.6 MG (SENOKOT) TAB PO SCH ×2 (07:52→19:58)
[2020-07-24] MEDS: PANTOPRAZOLE 40 MG (PROTONIX) TAB PO SCH (07:52)
[2020-07-24] MEDS: lisINopril 40 MG (PRINIVIL) TABLET PO SCH (07:52)
[2020-07-24] MEDS: predniSONE 20 MG TAB PO SCH (07:52)
[2020-07-24 08:00] VITALS: BP 153/81
[2020-07-24] MEDS: NS IV 500 ML 500 ML IV SCH (09:30)
[2020-07-24 11:22] LABS: HEMOGLOBIN 10.1 g/dL (13.3-17.7); MEAN PLATELET VOLUME 10.6 fL (9.0-12.2); WHITE BLOOD COUNT 10.1 10^3/uL (4.3-11.0)
--- NOTE | 2020-07-24 11:36 | Progress Note ---
Standard Progress Note Progress Notes/Assess & Plan Date Seen by a Provider: Jul 24, 2020 Time Seen by a Provider: 11:30 Progress/Assessment & Plan 79-year-old male admitted with severe thrombocytopenia and mucosal bleeding. Clinically consistent with ITP and started on treatment with IVIG 2 days and high-dose steroids. Patient doing better clinically but had a nosebleed this AM which took 40-45 minutes to stop. No new crops of petechiae and no oral lesions. Lab work reviewed from today with platelet count 0. Liver function studies normal Patient received 1 unit of platelets because of active bleeding and repeat CBC with platelet count of 5000. Will repeat CBC tomorrow morning. Completed bone marrow aspiration and biopsy yesterday and will await results. Start the patient on folic acid 1 mg daily because of rapid cell turnover. Will follow patient with you. GENARO MARK Jul 24, 2020 11:36
[2020-07-24 12:00] VITALS: BP 132/81
[2020-07-24 15:50] VITALS: BP 147/87
[2020-07-24] MEDS ORDERED: FOLIC ACID 1 MG TAB PO ONE (16:00)
--- NOTE | 2020-07-24 16:02 | Progress Note - Hospitalist ---
Subjective HPI/CC On Admission Date Seen by Provider: Jul 24, 2020 Time Seen by Provider: 09:40 Atif Saldana is an 79-year-old male with past medical history of hypertension, diabetes, BPH, GERD, seizure disorder, osteoarthritis, who presented with abnormal bleeding. He reports that he coughed up some blood this morning. He says it was dark red and like a big clot. He also reports having black stools. He says that his gums were bleeding a little bit. He has a new rash on his legs. He denies any fevers or chills. He denies any headache or vision changes. He denies any chest pain. He denies any shortness of breath or cough. He denies any abdominal pain. He denies any nausea or vomiting. He denies any diarrhea. He does not take any blood thinners. He does not take aspirin. Subjective/Events-last exam he is having a nosebleed this morning. It is finally getting under control. His nurse, Sharmin, has put in a lot of effort to getting the bleeding to stop. He reports no other complaints or concerns. Objective Exam Vital Signs Vital Signs Date Time Temp Pulse Resp B/P (MAP) Pulse Ox O2 Delivery O2 Flow Rate FiO2 07/24/20 15:50 36.4 90 18 147/87 (107) 100 Room Air 07/24/20 08:00 2.00 Capillary Refill : Less Than 3 Seconds General Appearance: No Apparent Distress, Obese Respiratory: Lungs Clear, Normal Breath Sounds, No Respiratory Distress Cardiovascular: Regular Rate, Rhythm, No Edema, No Murmur Gastrointestinal: Normal Bowel Sounds, Non Tender, Soft Extremity: Non Tender, No Pedal Edema Neurologic/Psychiatric: Alert, Oriented x3, No Motor/Sensory Deficits, Normal Mood/Affect Skin: Warm/Dry, Petechia Results/Procedures Lab Laboratory Tests 07/24/20 05:52 07/24/20 11:06 Patient resulted labs reviewed. Assessment/Plan Assessment and Plan Assess & Plan/Chief Complaint Acute ITP Hematology consulted, appreciate assistance Peripheral smear on arrival showed no platelets, no blasts, no schistocytes, consistent with ITP platelets remain critically low, 0 this morning Prednisone 80 mg daily s/p IVIG 60 g daily x 2 days Bone marrow biopsy performed 07/23, awaiting results May require rituximab infusion Pseudohyponatremia secondary to IVIG, continue to monitor T2DM Sliding scale insulin HTN Continue lisinopril BPH Continue Flomax Seizure disorder Continue primidone DVT Prophylaxis: contraindicated due to severe thrombocytopenia Diagnosis/Problems Diagnosis/Problems (1) Acute idiopathic thrombocytopenic purpura Status: Acute (2) Hyponatremia Status: Acute (3) Normocytic anemia Status: Acute (4) HTN (hypertension) Status: Chronic (5) T2DM (type 2 diabetes mellitus) Status: Chronic (6) BPH (benign prostatic hyperplasia) Status: Chronic (7) GERD (gastroesophageal reflux disease) Status: Chronic (8) Seizure disorder Status: Chronic Clinical Quality Measures DVT/VTE Risk/Contraindication: Risk Factor Score Per Nursin RFS Level Per Nursing on Admit: 2=Moderate KARINE LYN MD Jul 24, 2020 16:02
[2020-07-24] MEDS: TAMSULOSIN 0.4 MG (FLOMAX) CAP PO SCH (17:13)
[2020-07-24 19:18] VITALS: BP 144/85
[2020-07-24] MEDS: HYDROcodone/APAP 5 MG/325 MG (LORTAB) TAB PO PRN (20:55)
[2020-07-25] VITALS (7 sets, daily range): BP systolic 125–149; BP diastolic 69–82
[2020-07-25] MEDS: NS IV 500 ML 500 ML IV SCH ×2 (01:50→21:13)
[2020-07-25] MEDS: inSUlin ASPART (NovoLOG) 1 UNIT/0.01 ML (CHARGE PER UNIT) SC SCH ×4 (04:58→20:53)
[2020-07-25] MEDS: CATHETER FLUSH 10 ML SYR IV SCH ×3 (04:58→21:02)
[2020-07-25 06:57] LABS: BASOPHILS % (AUTO) 0 % (0-10); EOSINOPHILS # (AUTO) 0.2 10^3/uL (0.0-0.3); EOSINOPHILS % (AUTO) 2 % (0-10); HEMATOCRIT 29 % (40-54); HEMOGLOBIN 9.8 g/dL (13.3-17.7); LYMPHOCYTES # (AUTO) 1.1 10^3/uL (1.0-4.0); LYMPHOCYTES % (AUTO) 12 % (12-44); MEAN CORPUSCULAR HEMOGLOBIN 31 pg (25-34); MEAN CORPUSCULAR HGB CONC 34 g/dL (32-36); MEAN CORPUSCULAR VOLUME 91 fL (80-99); MONOCYTES # (AUTO) 0.8 10^3/uL (0.0-1.0); MONOCYTES % (AUTO) 9 % (0-12); NEUTROPHILS # (AUTO) 6.5 10^3/uL (1.8-7.8); NEUTROPHILS % (AUTO) 74 % (42-75); WHITE BLOOD COUNT 8.7 10^3/uL (4.3-11.0)
[2020-07-25 06:59] LABS: PLATELET COUNT 1 10^3/uL (130-400)
[2020-07-25 07:02] LABS: CHLORIDE 99 MMOL/L (98-107); POTASSIUM 3.6 MMOL/L (3.6-5.0); SODIUM 129 MMOL/L (135-145)
[2020-07-25 07:03] LABS: CALCIUM 8.2 MG/DL (8.5-10.1)
[2020-07-25 07:04] LABS: GLUCOSE 136 MG/DL (70-105)
[2020-07-25 07:05] LABS: CARBON DIOXIDE 21 MMOL/L (21-32)
[2020-07-25 07:07] LABS: CREATININE SERUM 0.88 MG/DL (0.60-1.30); GFR ESTIMATED > 60
[2020-07-25 07:08] LABS: BUN/CREATININE RATIO 33
[2020-07-25] MEDS: PANTOPRAZOLE 40 MG (PROTONIX) TAB PO SCH (09:18)
[2020-07-25] MEDS: predniSONE 20 MG TAB PO SCH (09:18)
[2020-07-25] MEDS: PRIMIDONE 50 MG TAB (MYSOLINE) PO SCH ×2 (09:19→17:29)
[2020-07-25] MEDS: SENNOSIDES 8.6 MG (SENOKOT) TAB PO SCH ×2 (09:19→21:02)
[2020-07-25] MEDS: DOCUSATE SODIUM 100 MG (COLACE) CAP PO SCH ×2 (09:19→20:53)
[2020-07-25] MEDS: lisINopril 40 MG (PRINIVIL) TABLET PO SCH (09:19)
[2020-07-25] MEDS: FOLIC ACID 1 MG TAB PO SCH (09:19)
--- NOTE | 2020-07-25 11:58 | Progress Note - Hospitalist ---
Subjective HPI/CC On Admission Date Seen by Provider: Jul 25, 2020 Time Seen by Provider: 09:10 Atif Saldana is an 79-year-old male with past medical history of hypertension, diabetes, BPH, GERD, seizure disorder, osteoarthritis, who presented with abnormal bleeding. He reports that he coughed up some blood this morning. He says it was dark red and like a big clot. He also reports having black stools. He says that his gums were bleeding a little bit. He has a new rash on his legs. He denies any fevers or chills. He denies any headache or vision changes. He denies any chest pain. He denies any shortness of breath or cough. He denies any abdominal pain. He denies any nausea or vomiting. He denies any diarrhea. He does not take any blood thinners. He does not take aspirin. Subjective/Events-last exam he denies any recurrent nose bleeding. He has not had any gum bleeding. He denies any dark stools. He has no complaints or concerns. Objective Exam Vital Signs Vital Signs Date Time Temp Pulse Resp B/P (MAP) Pulse Ox O2 Delivery O2 Flow Rate FiO2 07/25/20 08:44 98 Room Air 07/25/20 08:00 36.0 78 18 143/82 (102) 07/24/20 08:00 2.00 Capillary Refill : Less Than 3 Seconds General Appearance: No Apparent Distress, Obese Respiratory: Lungs Clear, Normal Breath Sounds, No Respiratory Distress Cardiovascular: Regular Rate, Rhythm, No Edema, Systolic Murmur Gastrointestinal: Normal Bowel Sounds, Non Tender, Soft Extremity: Normal Inspection, Non Tender, No Pedal Edema Neurologic/Psychiatric: Alert, Oriented x3, No Motor/Sensory Deficits, Normal Mood/Affect Skin: Warm/Dry, Petechia Results/Procedures Lab Laboratory Tests 07/25/20 06:02 Patient resulted labs reviewed. Assessment/Plan Assessment and Plan Assess & Plan/Chief Complaint Acute ITP Hematology consulted, appreciate assistance Peripheral smear on arrival showed no platelets, no blasts, no schistocytes, consistent with ITP platelets remain critically low, 0 this morning Prednisone 80 mg daily s/p IVIG 60 g daily x 2 days Bone marrow biopsy performed 07/23, awaiting results May require rituximab infusion Pseudohyponatremia secondary to IVIG, continue to monitor T2DM Sliding scale insulin HTN Continue lisinopril BPH Continue Flomax Seizure disorder Continue primidone DVT Prophylaxis: contraindicated due to severe thrombocytopenia Diagnosis/Problems Diagnosis/Problems (1) Acute idiopathic thrombocytopenic purpura Status: Acute (2) Hyponatremia Status: Acute (3) Normocytic anemia Status: Acute (4) HTN (hypertension) Status: Chronic (5) T2DM (type 2 diabetes mellitus) Status: Chronic (6) BPH (benign prostatic hyperplasia) Status: Chronic (7) GERD (gastroesophageal reflux disease) Status: Chronic (8) Seizure disorder Status: Chronic Clinical Quality Measures DVT/VTE Risk/Contraindication: Risk Factor Score Per Nursin RFS Level Per Nursing on Admit: 2=Moderate KARINE LYN MD Jul 25, 2020 11:58
[2020-07-25] MEDS: TAMSULOSIN 0.4 MG (FLOMAX) CAP PO SCH (17:29)
--- NOTE | 2020-07-25 18:15 | NUR ---
MOVED TO ROOM 411.
[2020-07-26] VITALS: BP 125/78
[2020-07-26 04:03] VITALS: BP 135/76
[2020-07-26] MEDS: CATHETER FLUSH 10 ML SYR IV SCH ×3 (05:26→20:45)
[2020-07-26] MEDS: inSUlin ASPART (NovoLOG) 1 UNIT/0.01 ML (CHARGE PER UNIT) SC SCH ×4 (05:28→20:44)
[2020-07-26 06:44] LABS: BASOPHILS % (AUTO) 0 % (0-10); EOSINOPHILS # (AUTO) 0.2 10^3/uL (0.0-0.3); EOSINOPHILS % (AUTO) 2 % (0-10); HEMATOCRIT 33 % (40-54); HEMOGLOBIN 11.3 g/dL (13.3-17.7); LYMPHOCYTES # (AUTO) 1.5 10^3/uL (1.0-4.0); LYMPHOCYTES % (AUTO) 14 % (12-44); MEAN CORPUSCULAR HEMOGLOBIN 31 pg (25-34); MEAN CORPUSCULAR HGB CONC 35 g/dL (32-36); MEAN CORPUSCULAR VOLUME 90 fL (80-99); MONOCYTES % (AUTO) 9 % (0-12); NEUTROPHILS # (AUTO) 8.1 10^3/uL (1.8-7.8); NEUTROPHILS % (AUTO) 73 % (42-75); WHITE BLOOD COUNT 11.1 10^3/uL (4.3-11.0)
[2020-07-26 06:46] LABS: PLATELET COUNT 1 10^3/uL (130-400)
[2020-07-26 07:01] LABS: CHLORIDE 98 MMOL/L (98-107); SODIUM 129 MMOL/L (135-145)
[2020-07-26 07:02] LABS: CALCIUM 8.5 MG/DL (8.5-10.1)
[2020-07-26 07:03] LABS: GLUCOSE 119 MG/DL (70-105)
[2020-07-26 07:04] LABS: CARBON DIOXIDE 21 MMOL/L (21-32)
[2020-07-26 07:06] LABS: CREATININE SERUM 0.97 MG/DL (0.60-1.30); GFR ESTIMATED > 60
[2020-07-26 07:08] LABS: BUN/CREATININE RATIO 27
[2020-07-26] MEDS: DOCUSATE SODIUM 100 MG (COLACE) CAP PO SCH ×2 (07:57→20:45)
[2020-07-26] MEDS: SENNOSIDES 8.6 MG (SENOKOT) TAB PO SCH ×2 (07:58→20:45)
[2020-07-26] MEDS: PANTOPRAZOLE 40 MG (PROTONIX) TAB PO SCH (07:58)
[2020-07-26] MEDS: predniSONE 20 MG TAB PO SCH (07:58)
[2020-07-26] MEDS: FOLIC ACID 1 MG TAB PO SCH (07:58)
[2020-07-26] MEDS: lisINopril 40 MG (PRINIVIL) TABLET PO SCH (07:59)
[2020-07-26 08:00] VITALS: BP 112/59
[2020-07-26] MEDS: HYDROcodone/APAP 5 MG/325 MG (LORTAB) TAB PO PRN ×2 (08:16→21:29)
[2020-07-26] MEDS: PRIMIDONE 50 MG TAB (MYSOLINE) PO SCH ×2 (08:16→18:00)
[2020-07-26] MEDS: NS IV 500 ML 500 ML IV SCH (11:21)
[2020-07-26 12:00] VITALS: BP 159/80
--- NOTE | 2020-07-26 12:36 | NUR ---
CM/SS: Visited with pt as pt plan for discharge - follow up Plan: Undetermined at this time. Pt is from home. It is likely pt will not have any identified needs, he receives services through the [facility] in [place]. Summary: Pt reports feeling ok on today. He reports that they are still doing some additional testing. He is unsure as to his plan of treatment and follow up. Pt denies needing anything at this time. this worker will follow up.
[2020-07-26 15:29] VITALS: BP 167/80
--- NOTE | 2020-07-26 16:48 | Progress Note ---
Standard Progress Note Progress Notes/Assess & Plan Date Seen by a Provider: Jul 26, 2020 Time Seen by a Provider: 16:38 Progress/Assessment & Plan 79-year-old male admitted with severe thrombocytopenia and mucosal bleeding. Clinically consistent with ITP and started on treatment with IVIG 2 days and high-dose steroids. Patient doing well clinically and no recurrence of the nosebleed. Bowels functioning well and still is dark(melanotic). No new crops of petechiae and no oral lesions (wet purpura). Lab work reviewed from today with platelet count 1. Will repeat CBC, CMP and LDH tomorrow morning. Preliminary report from bone marrow aspiration biopsy showed increased megakaryocytes with the rest of the cell lines unremarkable consistent with ITP. He has not had a response to IVIG and high-dose steroid therapy so far and continues to have melena and intermittent nosebleeds. Today I discussed the next step including treatment with rituximab weekly 4. Patient wanted to proceed with this. Because of severe thrombocytopenia and intermittent b leeding, unable to discharge patient yet. Because of an influx of COVID-19 patients in the hospital, Hospitalist services have requested that the patient be transferred to heme/onc service and I have accepted the patient in transfer. We will plan on starting the patient on rituximab tomorrow pending evaluation for prior authorization. Continue prednisone 1 mg/kg daily. GENARO MARK Jul 26, 2020 16:48
[2020-07-26] MEDS: TAMSULOSIN 0.4 MG (FLOMAX) CAP PO SCH (18:00)
[2020-07-26 19:34] VITALS: BP 159/84
[2020-07-26] MEDS: MELATONIN 3 MG TABLET PO PRN (21:29)
[2020-07-27 00:18] VITALS: BP 146/80
--- NOTE | 2020-07-27 03:40 | NUR ---
PT CALLED THIS RN INTO ROOM AT THIS TIME. PT HAS A NOSE BLEED. PLUGGED NOSE WITH TISSUE, LEANED HEAD FORWARD, AND APPLIED PRESSURE TO THE BRIDGE OF NOSE.
[2020-07-27 03:50] VITALS: BP 138/83
[2020-07-27] MEDS: NS IV 500 ML 500 ML IV SCH ×2 (04:35→21:39)
[2020-07-27 05:23] LABS: BASOPHILS % (AUTO) 0 % (0-10); EOSINOPHILS # (AUTO) 0.2 10^3/uL (0.0-0.3); EOSINOPHILS % (AUTO) 2 % (0-10); HEMATOCRIT 33 % (40-54); HEMOGLOBIN 11.1 g/dL (13.3-17.7); LYMPHOCYTES # (AUTO) 1.7 10^3/uL (1.0-4.0); LYMPHOCYTES % (AUTO) 15 % (12-44); MEAN CORPUSCULAR HEMOGLOBIN 31 pg (25-34); MEAN CORPUSCULAR HGB CONC 34 g/dL (32-36); MEAN CORPUSCULAR VOLUME 91 fL (80-99); MONOCYTES # (AUTO) 0.9 10^3/uL (0.0-1.0); MONOCYTES % (AUTO) 9 % (0-12); NEUTROPHILS # (AUTO) 7.9 10^3/uL (1.8-7.8); NEUTROPHILS % (AUTO) 72 % (42-75)
[2020-07-27 05:27] LABS: PLATELET COUNT 2 10^3/uL (130-400)
[2020-07-27 05:34] LABS: ALBUMIN 3.8 GM/DL (3.2-4.5); CHLORIDE 97 MMOL/L (98-107); POTASSIUM 4.3 MMOL/L (3.6-5.0); SODIUM 130 MMOL/L (135-145)
[2020-07-27 05:35] LABS: CALCIUM 8.5 MG/DL (8.5-10.1)
[2020-07-27 05:36] LABS: GLUCOSE 131 MG/DL (70-105); TOTAL PROTEIN 7.6 GM/DL (6.4-8.2)
[2020-07-27 05:38] LABS: CARBON DIOXIDE 24 MMOL/L (21-32)
[2020-07-27 05:40] LABS: ALKALINE PHOSPHATASE 58 U/L (40-136); CREATININE SERUM 0.98 MG/DL (0.60-1.30); GFR ESTIMATED > 60
[2020-07-27 05:41] LABS: BUN/CREATININE RATIO 29
[2020-07-27 05:43] LABS: ALANINE AMINOTRANSFERASE 30 U/L (0-55)
[2020-07-27] MEDS: inSUlin ASPART (NovoLOG) 1 UNIT/0.01 ML (CHARGE PER UNIT) SC SCH ×4 (06:47→21:40)
[2020-07-27] MEDS: CATHETER FLUSH 10 ML SYR IV SCH ×3 (06:47→21:41)
[2020-07-27 08:00] VITALS: BP 136/60
[2020-07-27] MEDS: DOCUSATE SODIUM 100 MG (COLACE) CAP PO SCH ×2 (08:36→21:40)
[2020-07-27] MEDS: predniSONE 20 MG TAB PO SCH (08:36)
[2020-07-27] MEDS: PRIMIDONE 50 MG TAB (MYSOLINE) PO SCH ×2 (08:36→17:35)
[2020-07-27] MEDS: FOLIC ACID 1 MG TAB PO SCH (08:36)
[2020-07-27] MEDS: lisINopril 40 MG (PRINIVIL) TABLET PO SCH (08:37)
[2020-07-27] MEDS: SENNOSIDES 8.6 MG (SENOKOT) TAB PO SCH ×2 (08:37→21:40)
[2020-07-27] MEDS: PANTOPRAZOLE 40 MG (PROTONIX) TAB PO SCH (08:37)
--- NOTE | 2020-07-27 10:15 | NUR ---
PT TO [facility] VIA
[2020-07-27] MEDS ORDERED: diphenhydrAMINE 50 MG/ML INJ (CANCER CENTER) IV PRN (10:45)
[2020-07-27] MEDS ORDERED: ACETAMINOPHEN 325 MG TAB (TYLENOL) CANCER CTR PO PRN (10:45)
[2020-07-27] MEDS ORDERED: NS IV 1000 ML (CANCER CTR) 1,000 ML IV SCH (10:45)
[2020-07-27] MEDS ORDERED: RITUXIMAB-ABBS 500 MG, RITUXIMAB-ABBS 300 MG in NS (IVPB) CANCER CENTER 186 ML IV SCH (10:45)
[2020-07-27 16:21] VITALS: BP 123/74
[2020-07-27] MEDS: TAMSULOSIN 0.4 MG (FLOMAX) CAP PO SCH (17:35)
--- NOTE | 2020-07-27 18:12 | Progress Note ---
Standard Progress Note Progress Notes/Assess & Plan Date Seen by a Provider: Jul 27, 2020 Time Seen by a Provider: 18:10 Progress/Assessment & Plan 79-year-old male admitted with severe thrombocytopenia and mucosal bleeding. Clinically consistent with ITP and started on treatment with IVIG 2 days and high-dose steroids. Patient doing well clinically and no recurrence of the nosebleed. Bowels functioning well and still is dark(melanotic). No new crops of petechiae and no oral lesions (wet purpura). Lab work reviewed from today with platelet count 1. Will repeat CBC, CMP and LDH tomorrow morning. Preliminary report from bone marrow aspiration biopsy showed increased megakaryocytes with the rest of the cell lines unremarkable consistent with ITP. He has not had a response to IVIG and high-dose steroid therapy so far and continues to have melena and intermittent nosebleeds. Today patient received first dose of treatment with rituximab with appropriate premedications and tolerated this. Because of severe thrombocytopenia and intermittent bleeding, unable to discharge patient yet. Continue prednisone 1 mg/kg daily. Monitor labs serially. GENARO MARK Jul 27, 2020 18:12
[2020-07-27 20:37] VITALS: BP 125/62
[2020-07-27] MEDS: HYDROcodone/APAP 5 MG/325 MG (LORTAB) TAB PO PRN (21:40)
[2020-07-27] MEDS: MELATONIN 3 MG TABLET PO PRN (21:40)
[2020-07-28 00:26] VITALS: BP 120/60
[2020-07-28 03:45] VITALS: BP 132/74
[2020-07-28 05:00] LABS: BASOPHILS % (AUTO) 0 % (0-10); EOSINOPHILS # (AUTO) 0.2 10^3/uL (0.0-0.3); EOSINOPHILS % (AUTO) 2 % (0-10); HEMATOCRIT 29 % (40-54); HEMOGLOBIN 9.7 g/dL (13.3-17.7); LYMPHOCYTES # (AUTO) 1.3 10^3/uL (1.0-4.0); LYMPHOCYTES % (AUTO) 13 % (12-44); MEAN CORPUSCULAR HEMOGLOBIN 31 pg (25-34); MEAN CORPUSCULAR HGB CONC 34 g/dL (32-36); MEAN CORPUSCULAR VOLUME 91 fL (80-99); MONOCYTES # (AUTO) 0.8 10^3/uL (0.0-1.0); MONOCYTES % (AUTO) 8 % (0-12); NEUTROPHILS # (AUTO) 7.5 10^3/uL (1.8-7.8); NEUTROPHILS % (AUTO) 74 % (42-75); WHITE BLOOD COUNT 10.1 10^3/uL (4.3-11.0)
[2020-07-28 05:02] LABS: PLATELET COUNT 1 10^3/uL (130-400)
[2020-07-28 05:11] LABS: CHLORIDE 99 MMOL/L (98-107); POTASSIUM 4.2 MMOL/L (3.6-5.0); SODIUM 131 MMOL/L (135-145)
[2020-07-28 05:12] LABS: CALCIUM 8.1 MG/DL (8.5-10.1)
[2020-07-28 05:13] LABS: GLUCOSE 109 MG/DL (70-105)
[2020-07-28 05:14] LABS: CARBON DIOXIDE 24 MMOL/L (21-32)
[2020-07-28 05:17] LABS: CREATININE SERUM 0.99 MG/DL (0.60-1.30); GFR ESTIMATED > 60
[2020-07-28 05:18] LABS: BUN/CREATININE RATIO 24
[2020-07-28] MEDS: CATHETER FLUSH 10 ML SYR IV SCH ×3 (05:35→21:06)
[2020-07-28] MEDS: inSUlin ASPART (NovoLOG) 1 UNIT/0.01 ML (CHARGE PER UNIT) SC SCH ×4 (05:35→21:06)
[2020-07-28 08:00] VITALS: BP 136/77
[2020-07-28] MEDS: lisINopril 40 MG (PRINIVIL) TABLET PO SCH (08:18)
[2020-07-28] MEDS: predniSONE 20 MG TAB PO SCH (08:18)
[2020-07-28] MEDS: PRIMIDONE 50 MG TAB (MYSOLINE) PO SCH ×2 (08:18→17:05)
[2020-07-28] MEDS: SENNOSIDES 8.6 MG (SENOKOT) TAB PO SCH ×2 (08:18→21:06)
[2020-07-28] MEDS: FOLIC ACID 1 MG TAB PO SCH (08:18)
[2020-07-28] MEDS: PANTOPRAZOLE 40 MG (PROTONIX) TAB PO SCH (08:18)
[2020-07-28] MEDS: DOCUSATE SODIUM 100 MG (COLACE) CAP PO SCH ×2 (08:18→21:06)
[2020-07-28] MEDS: HYDROcodone/APAP 5 MG/325 MG (LORTAB) TAB PO PRN ×2 (08:21→17:05)
[2020-07-28 12:00] VITALS: BP 158/94
--- NOTE | 2020-07-28 13:55 | NUR ---
"RD ASSESSMENT PMHx: HTN; DM; BPH; GERD; OA; seizure disorder; hypercholesterolemia PT INTERACTION: Pt was awake and pleasant during nutrition assessment. Pt states he has been eating well since last assessment. Note avg PO intake 86% x4d, per chart review. Pt states no issues with nausea, vomiting, constipation, or diarrhea since last assessment. Note last BM was 10/7, and pt currently on bowel regimen of colace BID; and senna BID, per chart review. ABNORMAL NUTRITION-RELATED LAB VALUES LOW: Na 131; Ca 8.1 HIGH: BUN 24; glu 109 Est. kcal needs: 1600 kcal | 15 kcal/kg Est. Pro needs: 85 g Pro | 0.8 g Pro/kg PES STATEMENT: Given current appetite and PO intake, no nutrition diagnosis at this time (NO-1.1) INTERVENTION: Continue with current diet order of CHO 60g/m 0snack diet. Will continue to follow and reassess as pt needs, intake, and status change. Maninder Ge, MS RD LD"
[2020-07-28] MEDS: NS IV 500 ML 500 ML IV SCH (14:20)
--- NOTE | 2020-07-28 15:00 | NUR ---
Pastoral care visit.
--- NOTE | 2020-07-28 15:46 | NUR ---
CM/SS: Visited with pt as to his current status and plan for discharge Plan: Undetermined at this time - Pt is from home and will be able to return there Summary: Pt reports he is doing ok at this time. Pt report he is still having some issues. He is reminded that this worker will follow up and determine a plan or services needed when it is time for him to discharge. He does verbalize understanding. This worker will follow up.
[2020-07-28 16:00] VITALS: BP 137/81
[2020-07-28] MEDS: TAMSULOSIN 0.4 MG (FLOMAX) CAP PO SCH (17:05)
[2020-07-28 20:00] VITALS: BP 123/75
[2020-07-29] VITALS: BP 140/76
[2020-07-29] MEDS: HYDROcodone/APAP 5 MG/325 MG (LORTAB) TAB PO PRN (02:41)
[2020-07-29 04:00] VITALS: BP 133/71
[2020-07-29 05:19] LABS: BASOPHILS % (AUTO) 0 % (0-10); EOSINOPHILS # (AUTO) 0.2 10^3/uL (0.0-0.3); EOSINOPHILS % (AUTO) 2 % (0-10); HEMATOCRIT 30 % (40-54); HEMOGLOBIN 10.1 g/dL (13.3-17.7); LYMPHOCYTES # (AUTO) 1.5 10^3/uL (1.0-4.0); LYMPHOCYTES % (AUTO) 15 % (12-44); MEAN CORPUSCULAR HEMOGLOBIN 31 pg (25-34); MEAN CORPUSCULAR HGB CONC 33 g/dL (32-36); MEAN CORPUSCULAR VOLUME 92 fL (80-99); MONOCYTES # (AUTO) 0.9 10^3/uL (0.0-1.0); MONOCYTES % (AUTO) 9 % (0-12); NEUTROPHILS # (AUTO) 7.4 10^3/uL (1.8-7.8); NEUTROPHILS % (AUTO) 72 % (42-75); WHITE BLOOD COUNT 10.2 10^3/uL (4.3-11.0)
[2020-07-29 05:48] LABS: PLATELET COUNT 1 10^3/uL (130-400)
[2020-07-29 05:54] LABS: CHLORIDE 98 MMOL/L (98-107); POTASSIUM 4.1 MMOL/L (3.6-5.0); SODIUM 131 MMOL/L (135-145)
[2020-07-29 05:55] LABS: CALCIUM 8.2 MG/DL (8.5-10.1); GLUCOSE 111 MG/DL (70-105)
[2020-07-29 05:57] LABS: CARBON DIOXIDE 25 MMOL/L (21-32)
[2020-07-29] MEDS: inSUlin ASPART (NovoLOG) 1 UNIT/0.01 ML (CHARGE PER UNIT) SC SCH ×4 (05:57→21:11)
[2020-07-29 05:59] LABS: CREATININE SERUM 0.99 MG/DL (0.60-1.30); GFR ESTIMATED > 60
[2020-07-29 06:00] LABS: BUN/CREATININE RATIO 23
[2020-07-29] MEDS: CATHETER FLUSH 10 ML SYR IV SCH ×3 (06:17→20:35)
[2020-07-29 08:00] VITALS: BP 112/73
[2020-07-29] MEDS: PANTOPRAZOLE 40 MG (PROTONIX) TAB PO SCH (09:02)
[2020-07-29] MEDS: DOCUSATE SODIUM 100 MG (COLACE) CAP PO SCH ×2 (09:03→20:35)
[2020-07-29] MEDS: PRIMIDONE 50 MG TAB (MYSOLINE) PO SCH ×2 (09:03→17:02)
[2020-07-29] MEDS: predniSONE 20 MG TAB PO SCH (09:03)
[2020-07-29] MEDS: FOLIC ACID 1 MG TAB PO SCH (09:04)
[2020-07-29] MEDS: lisINopril 40 MG (PRINIVIL) TABLET PO SCH (09:04)
[2020-07-29] MEDS: SENNOSIDES 8.6 MG (SENOKOT) TAB PO SCH ×2 (09:04→20:35)
[2020-07-29 12:00] VITALS: BP 126/78
--- NOTE | 2020-07-29 14:59 | NUR ---
CM/SS: Visited with pt as to his current status Plan: Undetermined at this time, pt continues to have issues with bleeding - no date of discharge has been determined Summary: Pt is sitting up in his recliner at the time of visit. Pt took the ice pack off of his nose, and began having a bloody nose, and requested that this worker gets the nurse as his nose is bleeding again. This worker did get the nurse. This worker let pt know that she would just follow up with pt at a later time. This worker will follow up.
[2020-07-29 16:45] VITALS: BP 117/72
[2020-07-29] MEDS: TAMSULOSIN 0.4 MG (FLOMAX) CAP PO SCH (17:02)
--- NOTE | 2020-07-29 17:20 | Progress Note ---
Standard Progress Note Progress Notes/Assess & Plan Date Seen by a Provider: Jul 29, 2020 Time Seen by a Provider: 17:01 Progress/Assessment & Plan 79-year-old male admitted with severe thrombocytopenia and mucosal bleeding. Clinically consistent with ITP and started on treatment with IVIG 2 days and high-dose steroids. Patient doing well clinically but had recurrence of the nosebleed today morning which lasted 40 minutes. Bowels functioning well and still is dark(melanotic). No new crops of petechiae and no oral lesions (wet purpura). Lab work reviewed from today with platelet count 1. Will repeat CBC and BMP tomorrow morning. Bone marrow aspiration biopsy showed increased megakaryocytes with the rest of the cell lines unremarkable consistent with ITP. He has not had a response to IVIG and high-dose steroid therapy so far and continues to have melena and intermittent nosebleeds. Patient received first dose of rituximab with appropriate premedications this week and tolerated this. Because of severe thrombocytopenia and intermittent bleeding, unable to discharge patient yet. Continue prednisone 1 mg/kg daily. Monitor labs serially. GENARO MARK Jul 29, 2020 17:20
[2020-07-29 20:45] VITALS: BP 116/70
[2020-07-30 00:21] VITALS: BP 105/68
[2020-07-30] MEDS: HYDROcodone/APAP 5 MG/325 MG (LORTAB) TAB PO PRN ×3 (00:27→19:59)
[2020-07-30 04:21] VITALS: BP 120/74
[2020-07-30] MEDS: inSUlin ASPART (NovoLOG) 1 UNIT/0.01 ML (CHARGE PER UNIT) SC SCH ×4 (05:58→20:13)
[2020-07-30] MEDS: CATHETER FLUSH 10 ML SYR IV SCH ×3 (05:58→19:59)
[2020-07-30 06:30] LABS: BASOPHILS % (AUTO) 0 % (0-10); EOSINOPHILS % (AUTO) 2 % (0-10); MEAN CORPUSCULAR VOLUME 92 fL (80-99)
[2020-07-30 06:32] LABS: EOSINOPHILS # (AUTO) 0.2 10^3/uL (0.0-0.3); HEMATOCRIT 31 % (40-54); HEMOGLOBIN 10.5 g/dL (13.3-17.7); LYMPHOCYTES # (AUTO) 1.2 10^3/uL (1.0-4.0); LYMPHOCYTES % (AUTO) 13 % (12-44); MEAN CORPUSCULAR HEMOGLOBIN 31 pg (25-34); MEAN CORPUSCULAR HGB CONC 34 g/dL (32-36); MONOCYTES # (AUTO) 0.9 10^3/uL (0.0-1.0); MONOCYTES % (AUTO) 10 % (0-12); NEUTROPHILS # (AUTO) 7.2 10^3/uL (1.8-7.8); NEUTROPHILS % (AUTO) 74 % (42-75); WHITE BLOOD COUNT 9.7 10^3/uL (4.3-11.0)
[2020-07-30 06:44] LABS: PLATELET COUNT 1 10^3/uL (130-400)
[2020-07-30 06:51] LABS: CHLORIDE 97 MMOL/L (98-107); POTASSIUM 4.1 MMOL/L (3.6-5.0); SODIUM 129 MMOL/L (135-145)
[2020-07-30 06:52] LABS: CALCIUM 8.3 MG/DL (8.5-10.1)
[2020-07-30 06:53] LABS: GLUCOSE 119 MG/DL (70-105)
[2020-07-30 06:54] LABS: CARBON DIOXIDE 23 MMOL/L (21-32)
[2020-07-30 06:57] LABS: CREATININE SERUM 0.94 MG/DL (0.60-1.30); GFR ESTIMATED > 60
[2020-07-30 06:58] LABS: BUN/CREATININE RATIO 27
[2020-07-30 08:00] VITALS: BP 124/75
[2020-07-30] MEDS: predniSONE 20 MG TAB PO SCH (08:56)
[2020-07-30] MEDS: SENNOSIDES 8.6 MG (SENOKOT) TAB PO SCH ×2 (08:56→19:58)
[2020-07-30] MEDS: DOCUSATE SODIUM 100 MG (COLACE) CAP PO SCH ×2 (08:56→19:58)
[2020-07-30] MEDS: PANTOPRAZOLE 40 MG (PROTONIX) TAB PO SCH (08:56)
[2020-07-30] MEDS: lisINopril 40 MG (PRINIVIL) TABLET PO SCH (08:56)
[2020-07-30] MEDS: FOLIC ACID 1 MG TAB PO SCH (08:56)
[2020-07-30] MEDS: PRIMIDONE 50 MG TAB (MYSOLINE) PO SCH ×2 (09:02→17:27)
--- NOTE | 2020-07-30 11:13 | Progress Note ---
Standard Progress Note Progress Notes/Assess & Plan Date Seen by a Provider: Jul 30, 2020 Time Seen by a Provider: 11:09 Progress/Assessment & Plan 79-year-old male admitted with severe thrombocytopenia and mucosal bleeding. Clinically consistent with ITP and started on treatment with IVIG 2 days and high-dose steroids with no significant benefit. Patient doing well clinically but had recurrence of the nosebleed yesterday which lasted 40 minutes. Bowels functioning well and still is dark(melanotic). No new crops of petechiae and no oral lesions (wet purpura). He has multiple ecchymosis on both forearms due to lab draws. Lab work reviewed from today with platelet count 1. Will repeat CBC and BMP tomorrow morning. Bone marrow aspiration biopsy showed increased megakaryocytes with the rest of the cell lines unremarkable consistent with ITP. Patient received first dose of rituximab with appropriate premedications ea rlier this week and tolerated this. If the thrombocytopenia doesn't respond to Rituxan, will need splenectomy. Because of severe thrombocytopenia and intermittent bleeding, unable to discharge patient. Continue prednisone 1 mg/kg daily. Monitor labs serially. Dr. Pan is covering for me. GENARO MARK Jul 30, 2020 11:13
--- NOTE | 2020-07-30 13:41 | NUR ---
CM/SS: Visit with pt as to his current status - Plan: Undetermined at this time. Pt is from home and will likely return there upon discharged Summary: Pt reports his nose bleed on yesterday was for 2 hours. Pt reports no nose bleed on today. He does seem hopeful in knowing that if things do not get better that he will need to have his spleen out. Pt reports if that makes him better, than he is ok with that. Pt talks about his house on [facility]. Pt does know extended family of this worker. He feels as he has gotten very good care here. Pt reports he does not need anything and that he is waiting until his next treatment. This worker shares with pt she will follow up with him on Sunday. He is ok with that and thanks this worker for visiting.
[2020-07-30 15:59] VITALS: BP 159/80
[2020-07-30] MEDS: TAMSULOSIN 0.4 MG (FLOMAX) CAP PO SCH (17:27)
[2020-07-30] MEDS: MELATONIN 3 MG TABLET PO PRN (19:58)
[2020-07-31] VITALS: BP 128/77
[2020-07-31] MEDS: CATHETER FLUSH 10 ML SYR IV SCH ×3 (05:43→20:41)
[2020-07-31] MEDS: inSUlin ASPART (NovoLOG) 1 UNIT/0.01 ML (CHARGE PER UNIT) SC SCH ×4 (05:43→20:40)
[2020-07-31 06:10] LABS: BASOPHILS % (AUTO) 0 % (0-10); LYMPHOCYTES # (AUTO) 1.5 10^3/uL (1.0-4.0); LYMPHOCYTES % (AUTO) 15 % (12-44); MONOCYTES # (AUTO) 0.8 10^3/uL (0.0-1.0); MONOCYTES % (AUTO) 8 % (0-12); NEUTROPHILS # (AUTO) 7.4 10^3/uL (1.8-7.8)
[2020-07-31 06:12] LABS: EOSINOPHILS # (AUTO) 0.1 10^3/uL (0.0-0.3); EOSINOPHILS % (AUTO) 1 % (0-10); HEMATOCRIT 32 % (40-54); HEMOGLOBIN 10.7 g/dL (13.3-17.7); MEAN CORPUSCULAR HEMOGLOBIN 31 pg (25-34); MEAN CORPUSCULAR HGB CONC 34 g/dL (32-36); MEAN CORPUSCULAR VOLUME 91 fL (80-99); NEUTROPHILS % (AUTO) 74 % (42-75)
[2020-07-31 06:17] LABS: PLATELET COUNT 1 10^3/uL (130-400)
[2020-07-31 06:20] LABS: CHLORIDE 97 MMOL/L (98-107); POTASSIUM 4.2 MMOL/L (3.6-5.0); SODIUM 130 MMOL/L (135-145)
[2020-07-31 06:21] LABS: CALCIUM 8.4 MG/DL (8.5-10.1); GLUCOSE 104 MG/DL (70-105)
[2020-07-31 06:23] LABS: CARBON DIOXIDE 25 MMOL/L (21-32)
[2020-07-31 06:25] LABS: CREATININE SERUM 1.01 MG/DL (0.60-1.30); GFR ESTIMATED > 60
[2020-07-31 06:26] LABS: BUN/CREATININE RATIO 24
[2020-07-31 08:00] VITALS: BP 119/81
[2020-07-31] MEDS: lisINopril 40 MG (PRINIVIL) TABLET PO SCH (08:40)
[2020-07-31] MEDS: DOCUSATE SODIUM 100 MG (COLACE) CAP PO SCH ×2 (08:41→20:39)
[2020-07-31] MEDS: PANTOPRAZOLE 40 MG (PROTONIX) TAB PO SCH (08:41)
[2020-07-31] MEDS: SENNOSIDES 8.6 MG (SENOKOT) TAB PO SCH ×2 (08:41→20:39)
[2020-07-31] MEDS: predniSONE 20 MG TAB PO SCH (08:42)
[2020-07-31] MEDS: FOLIC ACID 1 MG TAB PO SCH (08:43)
[2020-07-31] MEDS: PRIMIDONE 50 MG TAB (MYSOLINE) PO SCH ×2 (08:43→17:11)
--- NOTE | 2020-07-31 11:57 | Progress Note ---
Progress Note Assessment/Plan Time Seen by Provider: 11:56 Events since last exam 79-year-old male admitted with severe thrombocytopenia and mucosal bleeding. Clinically consistent with ITP and started on treatment with IVIG 2 days and high-dose steroids so far. Patient doing well clinically and has no more noticeable bleeding since yesterday. His black stool is also lighten up today. Overall doing better today. Lab work reviewed from today with platelet count 1. Hb stable at 10. WBC stable. Assessment/Plan ITP on high dose steroid. Plt still low at 1 but Hb and WBC stable. No more bleeding. Will repeat CBC and BMP tomorrow morning. Bone marrow aspiration biopsy showed increased megakaryocytes with the rest of the cell lines unremarkable consistent with ITP. Patient received first dose of rituximab with appropriate premedications and maybe repeat next week. Because of severe thrombocytopenia and intermittent bleeding, unable to discharge patient. Continue prednisone 1 mg/kg daily. Daily CBC with auto-diff. Vitals Last set of Vitals Signs Vital Signs Date Time Temp Pulse Resp B/P (MAP) Pulse Ox O2 Delivery O2 Flow Rate FiO2 07/31/20 08:00 Room Air 07/31/20 08:00 35.8 51 16 119/81 (94) 90 I&O I&O l Intake and Output 07/31/20 00:00 Intake Total 3840 ml Output Total 3945 ml Balance -105 ml Intake Oral 3840 ml Output Urine Total 3945 ml # Voids 2 # Bowel Movements 2 Labs Laboratory Tests 07/30/20 16:01: Glucometer 228H 07/30/20 20:09: Glucometer 216H 07/31/20 05:42: Glucometer 103 07/31/20 05:59: White Blood Count 10.0, Red Blood Count 3.49L, Hemoglobin 10.7L, Hematocrit 32L, Mean Corpuscular Volume 91, Mean Corpuscular Hemoglobin 31, Mean Corpuscular Hemoglobin Concent 34, Red Cell Distribution Width 14.7H, Platelet Count 1*L, Mean Platelet Volume , Immature Granulocyte % (Auto) 2, Neutrophils (%) (Auto) 74, Lymphocytes (%) (Auto) 15, Monocytes (%) (Auto) 8, Eosinophils (%) (Auto) 1, Basophils (%) (Auto) 0, Neutrophils # (Auto) 7.4, Lymphocytes # (Auto) 1.5, Monocytes # (Auto) 0.8, Eosinophils # (Auto) 0.1, Basophils # (Auto) 0.0, Immature Granulocyte # (Auto) 0.2H, Sodium Level 130L, Potassium Level 4.2, Chloride Level 97L, Carbon Dioxide Level 25, Anion Gap 8, Blood Urea Nitrogen 24H, Creatinine 1.01, Estimat Glomerular Filtration Rate > 60, BUN/Creatinine Ratio 24, Glucose Level 104, Calcium Level 8.4L 07/31/20 11:06: Glucometer 149H Clinical Quality Measures DVT/VTE Risk/Contraindication: Risk Factor Score Per Nursin RFS Level Per Nursing on Admit: 2=Moderate OMAR REYES MD Jul 31, 2020 11:57
[2020-07-31 16:29] VITALS: BP 134/80
[2020-07-31] MEDS: TAMSULOSIN 0.4 MG (FLOMAX) CAP PO SCH (17:11)
[2020-07-31 23:52] VITALS: BP 106/69
[2020-08-01] MEDS: inSUlin ASPART (NovoLOG) 1 UNIT/0.01 ML (CHARGE PER UNIT) SC SCH ×4 (06:15→20:10)
[2020-08-01] MEDS: CATHETER FLUSH 10 ML SYR IV SCH ×3 (06:16→20:07)
[2020-08-01 08:00] VITALS: BP 115/55
[2020-08-01] MEDS: PRIMIDONE 50 MG TAB (MYSOLINE) PO SCH ×2 (08:15→17:18)
[2020-08-01] MEDS: PANTOPRAZOLE 40 MG (PROTONIX) TAB PO SCH (08:16)
[2020-08-01] MEDS: DOCUSATE SODIUM 100 MG (COLACE) CAP PO SCH ×2 (08:16→20:03)
[2020-08-01] MEDS: SENNOSIDES 8.6 MG (SENOKOT) TAB PO SCH ×2 (08:16→20:03)
[2020-08-01] MEDS: predniSONE 20 MG TAB PO SCH (08:16)
[2020-08-01] MEDS: lisINopril 40 MG (PRINIVIL) TABLET PO SCH (08:16)
[2020-08-01] MEDS: FOLIC ACID 1 MG TAB PO SCH (08:16)
--- NOTE | 2020-08-01 13:35 | Progress Note ---
Progress Note Assessment/Plan Time Seen by Provider: 13:33 Events since last exam No new issues. No bleeding, no more black stool. Up to chair and eating his lunch Plt still 1. Hb is up from 10.5 to 10.7 today. Assessment/Plan ITP on high dose steroid. Plt still low at 1 but Hb and WBC stable. No more bleeding. Will repeat CBC and BMP tomorrow morning. Bone marrow aspiration biopsy showed increased megakaryocytes with the rest of the cell lines unremarkable consistent with ITP. Patient received first dose of rituximab with appropriate premedications and maybe repeat next week. Because of severe thrombocytopenia and intermittent bleeding, unable to discharge patient. Continue prednisone 1 mg/kg daily. Daily CBC with auto-diff. Vitals Last set of Vitals Signs Vital Signs Date Time Temp Pulse Resp B/P (MAP) Pulse Ox O2 Delivery O2 Flow Rate FiO2 08/01/20 08:30 Room Air 08/01/20 08:00 36.2 95 20 115/55 (75) 98 I&O I&O Intake and Output 08/01/20 00:00 Intake Total 3705 ml Output Total 3050 ml Balance 655 ml Intake Oral 3705 ml Output Urine Total 3050 ml # Bowel Movements 2 Labs Laboratory Tests 07/31/20 15:50: Glucometer 252H 07/31/20 20:21: Glucometer 196H 08/01/20 06:14: Glucometer 124H 08/01/20 11:13: Glucometer 140H Clinical Quality Measures DVT/VTE Risk/Contraindication: Risk Factor Score Per Nursin RFS Level Per Nursing on Admit: 2=Moderate OMAR REYES MD Aug 01, 2020 13:35
[2020-08-01 16:29] VITALS: BP 93/56
[2020-08-01] MEDS: TAMSULOSIN 0.4 MG (FLOMAX) CAP PO SCH (17:18)
[2020-08-01 23:30] VITALS: BP 112/68
[2020-08-02] MEDS: inSUlin ASPART (NovoLOG) 1 UNIT/0.01 ML (CHARGE PER UNIT) SC SCH ×4 (05:51→21:46)
[2020-08-02] MEDS: CATHETER FLUSH 10 ML SYR IV SCH ×3 (05:53→22:28)
[2020-08-02] MEDS: predniSONE 20 MG TAB PO SCH (07:42)
[2020-08-02] MEDS: lisINopril 40 MG (PRINIVIL) TABLET PO SCH (07:44)
[2020-08-02] MEDS: PRIMIDONE 50 MG TAB (MYSOLINE) PO SCH ×2 (07:44→17:27)
[2020-08-02] MEDS: PANTOPRAZOLE 40 MG (PROTONIX) TAB PO SCH (07:44)
[2020-08-02] MEDS: FOLIC ACID 1 MG TAB PO SCH (07:45)
[2020-08-02] MEDS: DOCUSATE SODIUM 100 MG (COLACE) CAP PO SCH ×2 (07:45→21:53)
[2020-08-02] MEDS: SENNOSIDES 8.6 MG (SENOKOT) TAB PO SCH ×2 (07:45→21:53)
[2020-08-02 08:00] VITALS: BP 137/78
--- NOTE | 2020-08-02 11:28 | Progress Note ---
Standard Progress Note Progress Notes/Assess & Plan Date Seen by a Provider: Aug 02, 2020 Time Seen by a Provider: 11:24 Progress/Assessment & Plan 79-year-old male admitted with severe thrombocytopenia and mucosal bleeding. Clinically consistent with ITP and started on treatment with IVIG 2 days and high-dose steroids with no significant benefit. Patient doing well clinically but platelets still very low. Bowels functioning well and not melanotic now. No new crops of petechiae and no oral lesions (wet purpura). He has multiple ecchymosis on both forearms due to lab draws. Lab work not done for 2 days. Will repeat CBC and CMP today and CBC tomorrow morning. Bone marrow aspiration biopsy showed increased megakaryocytes with the rest of the cell lines unremarkable consistent with ITP. Patient received first dose of rituximab last Sunday and is due for second dose tomorrow. If the thrombocytopenia doesn't respond to Rituxan, will need splenectomy. Because of severe thrombocytopenia and intermittent bleeding, unable to discharge patient. Continue prednisone 1 mg/kg daily. Monitor labs serially. GENARO MARK Aug 02, 2020 11:28
[2020-08-02 12:00] LABS: BASOPHILS % (AUTO) 0 % (0-10); EOSINOPHILS # (AUTO) 0.1 10^3/uL (0.0-0.3); EOSINOPHILS % (AUTO) 1 % (0-10); HEMATOCRIT 33 % (40-54); HEMOGLOBIN 11.3 g/dL (13.3-17.7); LYMPHOCYTES # (AUTO) 0.4 10^3/uL (1.0-4.0); LYMPHOCYTES % (AUTO) 3 % (12-44); MEAN CORPUSCULAR HEMOGLOBIN 31 pg (25-34); MEAN CORPUSCULAR HGB CONC 34 g/dL (32-36); MEAN CORPUSCULAR VOLUME 90 fL (80-99); MONOCYTES # (AUTO) 0.4 10^3/uL (0.0-1.0); MONOCYTES % (AUTO) 3 % (0-12); NEUTROPHILS # (AUTO) 9.8 10^3/uL (1.8-7.8); NEUTROPHILS % (AUTO) 91 % (42-75); WHITE BLOOD COUNT 10.8 10^3/uL (4.3-11.0)
[2020-08-02 12:18] LABS: ALANINE AMINOTRANSFERASE 31 U/L (0-55); ALBUMIN 3.6 GM/DL (3.2-4.5); ALKALINE PHOSPHATASE 47 U/L (40-136); BILIRUBIN,TOTAL 0.9 MG/DL (0.1-1.0); BUN/CREATININE RATIO 24; CALCIUM 8.2 MG/DL (8.5-10.1); CARBON DIOXIDE 21 MMOL/L (21-32); CHLORIDE 92 MMOL/L (98-107); CREATININE SERUM 1.02 MG/DL (0.60-1.30); GFR ESTIMATED > 60; GLUCOSE 129 MG/DL (70-105); POTASSIUM 4.4 MMOL/L (3.6-5.0); TOTAL PROTEIN 6.6 GM/DL (6.4-8.2)
[2020-08-02 12:27] LABS: SODIUM 124 MMOL/L (135-145)
[2020-08-02 12:50] LABS: PLATELET COUNT 3 10^3/uL (130-400)
[2020-08-02 16:00] VITALS: BP 132/78
[2020-08-02] MEDS: TAMSULOSIN 0.4 MG (FLOMAX) CAP PO SCH (17:27)
[2020-08-02] MEDS: HYDROcodone/APAP 5 MG/325 MG (LORTAB) TAB PO PRN (21:53)
[2020-08-03] VITALS: BP 113/63
[2020-08-03 04:53] LABS: EOSINOPHILS # (AUTO) 0.3 10^3/uL (0.0-0.3); EOSINOPHILS % (AUTO) 2 % (0-10); HEMOGLOBIN 10.8 g/dL (13.3-17.7); LYMPHOCYTES # (AUTO) 1.6 10^3/uL (1.0-4.0); LYMPHOCYTES % (AUTO) 14 % (12-44)
[2020-08-03 04:55] LABS: BASOPHILS % (AUTO) 0 % (0-10); HEMATOCRIT 32 % (40-54); MEAN CORPUSCULAR HEMOGLOBIN 31 pg (25-34); MEAN CORPUSCULAR HGB CONC 34 g/dL (32-36); MEAN CORPUSCULAR VOLUME 90 fL (80-99); MONOCYTES # (AUTO) 0.9 10^3/uL (0.0-1.0); MONOCYTES % (AUTO) 8 % (0-12); NEUTROPHILS # (AUTO) 8.2 10^3/uL (1.8-7.8); NEUTROPHILS % (AUTO) 74 % (42-75); WHITE BLOOD COUNT 11.1 10^3/uL (4.3-11.0)
[2020-08-03 05:01] LABS: PLATELET COUNT 2 10^3/uL (130-400)
[2020-08-03 05:37] LABS: ALBUMIN 3.5 GM/DL (3.2-4.5); CHLORIDE 94 MMOL/L (98-107); POTASSIUM 4.1 MMOL/L (3.6-5.0); SODIUM 126 MMOL/L (135-145)
[2020-08-03 05:39] LABS: GLUCOSE 111 MG/DL (70-105)
[2020-08-03 05:41] LABS: BILIRUBIN,TOTAL 0.7 MG/DL (0.1-1.0); CARBON DIOXIDE 23 MMOL/L (21-32)
[2020-08-03 05:43] LABS: ALKALINE PHOSPHATASE 44 U/L (40-136); CREATININE SERUM 0.89 MG/DL (0.60-1.30); GFR ESTIMATED > 60
[2020-08-03 05:44] LABS: BUN/CREATININE RATIO 25
[2020-08-03 05:46] LABS: ALANINE AMINOTRANSFERASE 28 U/L (0-55)
--- NOTE | 2020-08-03 05:52 | NUR ---
Notified Dr. Roper that the patients platelets are a 2 this AM
[2020-08-03] MEDS: inSUlin ASPART (NovoLOG) 1 UNIT/0.01 ML (CHARGE PER UNIT) SC SCH ×4 (06:01→22:03)
[2020-08-03] MEDS: CATHETER FLUSH 10 ML SYR IV SCH ×3 (06:16→22:03)
[2020-08-03 08:00] VITALS: BP 123/78
[2020-08-03] MEDS: PANTOPRAZOLE 40 MG (PROTONIX) TAB PO SCH (08:05)
[2020-08-03] MEDS: PRIMIDONE 50 MG TAB (MYSOLINE) PO SCH ×2 (08:05→18:03)
[2020-08-03] MEDS: DOCUSATE SODIUM 100 MG (COLACE) CAP PO SCH ×2 (08:05→21:59)
[2020-08-03] MEDS: SENNOSIDES 8.6 MG (SENOKOT) TAB PO SCH ×2 (08:05→21:59)
[2020-08-03] MEDS: predniSONE 20 MG TAB PO SCH (08:05)
[2020-08-03] MEDS: FOLIC ACID 1 MG TAB PO SCH (08:05)
[2020-08-03] MEDS: lisINopril 40 MG (PRINIVIL) TABLET PO SCH (08:05)
[2020-08-03] MEDS ORDERED: ACETAMINOPHEN 325 MG TAB (TYLENOL) CANCER CTR PO PRN (08:15)
[2020-08-03] MEDS ORDERED: diphenhydrAMINE 50 MG/ML INJ (CANCER CENTER) IV PRN (08:15)
[2020-08-03] MEDS ORDERED: NS IV 1000 ML (CANCER CTR) IV SCH (08:15)
--- NOTE | 2020-08-03 09:33 | NUR ---
patient off floor at this time for infusion in cancer center
[2020-08-03] MEDS ORDERED: diphenhydrAMINE 25 MG TAB (BENADRYL) CANCER CENTER PO SCH (10:00)
--- NOTE | 2020-08-03 11:39 | Progress Note ---
Standard Progress Note Progress Notes/Assess & Plan Date Seen by a Provider: Aug 03, 2020 Time Seen by a Provider: 11:36 Progress/Assessment & Plan 79-year-old male admitted with severe thrombocytopenia and mucosal bleeding. Clinically consistent with ITP and started on treatment with IVIG 2 days and high-dose steroids with no significant benefit. Patient doing well clinically but platelets still very low. Bowels functioning well and near normal in colour. No new crops of petechiae and no oral lesions (wet purpura). He has multiple ecchymosis on both forearms due to lab draws. CBC today with platelets 2,000. Bone marrow aspiration biopsy showed increased megakaryocytes with the rest of the cell lines unremarkable consistent with ITP. Patient receiving 2nd dose of rituximab today. If the thrombocytopenia doesn't respond to Rituxan, will need splenectomy. Because of severe thrombocytopenia and intermittent bleeding, unable to discharge patient. Continue prednisone 1 mg/kg daily. Monitor labs serially. Dr. Pan covering until Sunday. GENARO MARK Aug 03, 2020 11:39
--- NOTE | 2020-08-03 12:17 | NUR ---
patient returned to 4th floor at this time
--- NOTE | 2020-08-03 15:24 | NUR ---
CM/SS: Visited with pt as to his current status and plan for discharge Plan: Pt is from home and will return there when deemed appropriate Summary: Pt reports having had his treatment today, and feels as if it went ok. Pt reports he is hopeful that his numbers will go up and that he may be able to go home at the end of the week. Services discussed, such as home care and follow up labs. Pt reports son lives by him and can take him if he were to need labs. Pt plans to complete the 4 week treatment and later at some point if he would need his spline removed then he would take care of that if the numbers do not increase after the last treatment. Pt's mood remains good and he reports getting out of his room and walking the halls just to get some exercise. Pt thanks this worker for visiting. This worker will follow up.
[2020-08-03 16:00] VITALS: BP 128/77
[2020-08-03] MEDS: TAMSULOSIN 0.4 MG (FLOMAX) CAP PO SCH (18:03)
[2020-08-03] MEDS: MELATONIN 3 MG TABLET PO PRN (22:03)
[2020-08-04 00:06] VITALS: BP 104/60
[2020-08-04 05:26] LABS: BASOPHILS % (AUTO) 0 % (0-10); HEMATOCRIT 35 % (40-54); HEMOGLOBIN 11.7 g/dL (13.3-17.7); MEAN CORPUSCULAR HGB CONC 34 g/dL (32-36); MONOCYTES # (AUTO) 0.9 10^3/uL (0.0-1.0); MONOCYTES % (AUTO) 7 % (0-12); NEUTROPHILS % (AUTO) 80 % (42-75)
[2020-08-04 05:28] LABS: EOSINOPHILS # (AUTO) 0.2 10^3/uL (0.0-0.3); EOSINOPHILS % (AUTO) 1 % (0-10); LYMPHOCYTES # (AUTO) 1.2 10^3/uL (1.0-4.0); LYMPHOCYTES % (AUTO) 10 % (12-44); MEAN CORPUSCULAR HEMOGLOBIN 30 pg (25-34); MEAN CORPUSCULAR VOLUME 89 fL (80-99); NEUTROPHILS # (AUTO) 9.4 10^3/uL (1.8-7.8); WHITE BLOOD COUNT 11.8 10^3/uL (4.3-11.0)
[2020-08-04 05:53] LABS: PLATELET COUNT 4 10^3/uL (130-400)
[2020-08-04 06:09] LABS: ALANINE AMINOTRANSFERASE 28 U/L (0-55); ALBUMIN 3.5 GM/DL (3.2-4.5); ALKALINE PHOSPHATASE 45 U/L (40-136); BILIRUBIN,TOTAL 0.6 MG/DL (0.1-1.0); BUN/CREATININE RATIO 22; CALCIUM 8.3 MG/DL (8.5-10.1); CARBON DIOXIDE 24 MMOL/L (21-32); CHLORIDE 97 MMOL/L (98-107); CREATININE SERUM 0.89 MG/DL (0.60-1.30); GFR ESTIMATED > 60; GLUCOSE 110 MG/DL (70-105); POTASSIUM 4.2 MMOL/L (3.6-5.0); SODIUM 129 MMOL/L (135-145); TOTAL PROTEIN 6.5 GM/DL (6.4-8.2)
[2020-08-04] MEDS: inSUlin ASPART (NovoLOG) 1 UNIT/0.01 ML (CHARGE PER UNIT) SC SCH ×4 (06:40→21:07)
[2020-08-04] MEDS: CATHETER FLUSH 10 ML SYR IV SCH ×3 (06:51→21:08)
[2020-08-04 08:42] VITALS: BP 123/73
[2020-08-04] MEDS: PANTOPRAZOLE 40 MG (PROTONIX) TAB PO SCH (09:03)
[2020-08-04] MEDS: predniSONE 20 MG TAB PO SCH (09:03)
[2020-08-04] MEDS: lisINopril 40 MG (PRINIVIL) TABLET PO SCH (09:03)
[2020-08-04] MEDS: FOLIC ACID 1 MG TAB PO SCH (09:03)
[2020-08-04] MEDS: SENNOSIDES 8.6 MG (SENOKOT) TAB PO SCH ×2 (09:03→21:06)
[2020-08-04] MEDS: DOCUSATE SODIUM 100 MG (COLACE) CAP PO SCH ×2 (09:04→21:06)
[2020-08-04] MEDS: PRIMIDONE 50 MG TAB (MYSOLINE) PO SCH ×2 (09:04→17:23)
--- NOTE | 2020-08-04 09:30 | NUR ---
PT HAD A NOSE BLEED THAT BEGAN AT 0910 AND STOPPED AT 0930, PT REPORTED HE DID NOT BLEED VERY MUCH WITH THIS ONE. COLD COMPRESS WAS APPLIED IMMEDIATELY WHEN NOSE BLEED BEGAN.
--- NOTE | 2020-08-04 13:44 | NUR ---
"RD ASSESSMENT PMHx: HTN; DM; BPH; GERD; OA; seizure disorder; hypercholesterolemia; PT INTERACTION: Pt was awake and pleasant during nutrition follow-up. Pt states he has been eating well since last assessment. Note avg PO intake 100% x4d, per chart review. Pt states some issues with constipation since last assessment. Note last BM was 08/02, and pt currently on bowel regimen of colace BID; and senna BID, per chart review. ABNORMAL NUTRITION-RELATED LAB VALUES LOW: Na 129; Cl 97; Ca 8.3; HIGH: BUN 20; glu 110 Est. kcal needs: 1525 kcal | 15 kcal/kg Est. Pro needs: 80 g Pro | 0.8 g Pro/kg PES STATEMENT: Given current appetite and PO intake, no nutrition diagnosis at this time (NO-1.1) INTERVENTION: Continue with current diet order of CHO 60g/m 0snack diet. Will continue to follow and reassess as pt needs, intake, and status change. Maninder Ge, MS RD LD"
[2020-08-04 16:00] VITALS: BP 112/68
[2020-08-04] MEDS: TAMSULOSIN 0.4 MG (FLOMAX) CAP PO SCH (17:23)
[2020-08-04] MEDS: MELATONIN 3 MG TABLET PO PRN (23:14)
[2020-08-05] VITALS: BP 140/69
[2020-08-05] MEDS: inSUlin ASPART (NovoLOG) 1 UNIT/0.01 ML (CHARGE PER UNIT) SC SCH ×4 (05:22→20:57)
[2020-08-05] MEDS: CATHETER FLUSH 10 ML SYR IV SCH ×3 (05:22→20:57)
[2020-08-05 05:57] LABS: EOSINOPHILS # (AUTO) 0.2 10^3/uL (0.0-0.3); EOSINOPHILS % (AUTO) 1 % (0-10); LYMPHOCYTES % (AUTO) 10 % (12-44); MONOCYTES % (AUTO) 7 % (0-12)
[2020-08-05 05:59] LABS: BASOPHILS % (AUTO) 0 % (0-10); HEMATOCRIT 34 % (40-54); HEMOGLOBIN 11.4 g/dL (13.3-17.7); LYMPHOCYTES # (AUTO) 1.1 10^3/uL (1.0-4.0); MEAN CORPUSCULAR HEMOGLOBIN 31 pg (25-34); MEAN CORPUSCULAR HGB CONC 34 g/dL (32-36); MEAN CORPUSCULAR VOLUME 90 fL (80-99); MONOCYTES # (AUTO) 0.8 10^3/uL (0.0-1.0); NEUTROPHILS # (AUTO) 9.2 10^3/uL (1.8-7.8); NEUTROPHILS % (AUTO) 81 % (42-75); WHITE BLOOD COUNT 11.5 10^3/uL (4.3-11.0)
[2020-08-05 06:07] LABS: PLATELET COUNT 6 10^3/uL (130-400)
[2020-08-05 08:00] VITALS: BP 112/61
[2020-08-05] MEDS: DOCUSATE SODIUM 100 MG (COLACE) CAP PO SCH ×2 (08:57→20:57)
[2020-08-05] MEDS: PRIMIDONE 50 MG TAB (MYSOLINE) PO SCH ×2 (08:57→18:42)
[2020-08-05] MEDS: FOLIC ACID 1 MG TAB PO SCH (08:57)
[2020-08-05] MEDS: lisINopril 40 MG (PRINIVIL) TABLET PO SCH (08:58)
[2020-08-05] MEDS: predniSONE 20 MG TAB PO SCH (08:58)
[2020-08-05] MEDS: SENNOSIDES 8.6 MG (SENOKOT) TAB PO SCH ×2 (08:58→20:56)
[2020-08-05] MEDS: PANTOPRAZOLE 40 MG (PROTONIX) TAB PO SCH (08:58)
[2020-08-05] MEDS: HYDROcodone/APAP 5 MG/325 MG (LORTAB) TAB PO PRN ×2 (08:59→20:56)
--- NOTE | 2020-08-05 10:14 | Progress Note ---
Progress Note Assessment/Plan Time Seen by Provider: 10:13 Events since last exam THIS IS THE NOTE FOR 08/04/2020. No new event. Plt is up to 4. Stable WBC and Hb. Assessment/Plan ITP on high dose steroid. Plt is slowly improving to 4 and Hb and WBC stable. No more bleeding. Bone marrow aspiration biopsy showed increased megakaryocytes with the rest of the cell lines unremarkable consistent with ITP. Patient received his weekly rituximab starting 07/27/2020. Because of severe thrombocytopenia and intermittent bleeding, unable to discharge patient. Continue prednisone 1 mg/kg daily. Daily CBC with auto-diff. Vitals Last set of Vitals Signs Vital Signs Date Time Temp Pulse Resp B/P (MAP) Pulse Ox O2 Delivery O2 Flow Rate FiO2 08/05/20 08:00 35.2 91 20 112/61 (78) 98 Room Air I&O I&O Intake and Output 08/05/20 00:00 Intake Total 2340 ml Output Total 1100 ml Balance 1240 ml Intake Oral 2340 ml Output Urine Total 1100 ml # Voids 2 # Bowel Movements 1 Labs Laboratory Tests 08/04/20 11:31: Glucometer 141H 08/04/20 17:08: Glucometer 264H 08/04/20 20:22: Glucometer 195H 08/05/20 05:21: Glucometer 118H 08/05/20 05:37: White Blood Count 11.5H, Red Blood Count 3.73L, Hemoglobin 11.4L, Hematocrit 34L , Mean Corpuscular Volume 90, Mean Corpuscular Hemoglobin 31, Mean Corpuscular Hemoglobin Concent 34, Red Cell Distribution Width 14.1, Platelet Count 6*L, Mean Platelet Volume , Immature Granulocyte % (Auto) 1, Neutrophils (%) (Auto) 81H, Lymphocytes (%) (Auto) 10L, Monocytes (%) (Auto) 7, Eosinophils (%) (Auto) 1, Basophils (%) (Auto) 0, Neutrophils # (Auto) 9.2H, Lymphocytes # (Auto) 1.1, Monocytes # (Auto) 0.8, Eosinophils # (Auto) 0.2, Basophils # (Auto) 0.0, Immature Granulocyte # (Auto) 0.1 Clinical Quality Measures DVT/VTE Risk/Contraindication: Risk Factor Score Per Nursin RFS Level Per Nursing on Admit: 2=Moderate OMAR REYES MD Aug 05, 2020 10:13
--- NOTE | 2020-08-05 10:33 | Progress Note ---
Progress Note Assessment/Plan Date Seen by Provider: Aug 05, 2020 Time Seen by Provider: 13:00 Events since last exam No bleeding. Doing well so far Plt is better up to 6 today. Hb 11.4 stable and WBC 11 slightly elevated but he is on high dose steroid. He wants to go home if possible but he lives in [place]. I told patient that if his Plt is above 10. I would consider sending him home. He asked if he can get a flu shot. I told him he will not benefit it because of the high dose steroid. The flu shot may also trigger another immune reaction and cause more problem of his ITP. I did tell him to ask everybody around him to get flu shot so he will get indirect benefits from their immunity. Assessment/Plan ITP on high dose steroid. Plt is slowly improving to 6 today and Hb and WBC stable. No more bleeding so far. Bone marrow aspiration biopsy showed increased megakaryocytes with the rest of the cell lines unremarkable consistent with ITP. Patient received first dose of rituximab 07/27/2020 and 2nd dose on 08/03/2020. He will have weekly doses for 4 weeks. Next treatment will be 08/10/2020. Because of severe thrombocytopenia and intermittent bleeding, unable to discharge patient at this point. Continue high dose of Prednisone 1 mg/kg daily. Daily CBC with auto-diff. Vitals Last set of Vitals Signs Vital Signs Date Time Temp Pulse Resp B/P (MAP) Pulse Ox O2 Delivery O2 Flow Rate FiO2 08/05/20 08:00 35.2 91 20 112/61 (78) 98 Room Air I&O I&O Intake and Output 08/05/20 00:00 Intake Total 2340 ml Output Total 1100 ml Balance 1240 ml Intake Oral 2340 ml Output Urine Total 1100 ml # Voids 2 # Bowel Movements 1 Labs Laboratory Tests 08/04/20 11:31: Glucometer 141H 08/04/20 17:08: Glucometer 264H 08/04/20 20:22: Glucometer 195H 08/05/20 05:21: Glucometer 118H 08/05/20 05:37: White Blood Count 11.5H, Red Blood Count 3.73L, Hemoglobin 11.4L, Hematocrit 34L , Mean Corpuscular Volume 90, Mean Corpuscular Hemoglobin 31, Mean Corpuscular Hemoglobin Concent 34, Red Cell Distribution Width 14.1, Platelet Count 6*L, Mean Platelet Volume , Immature Granulocyte % (Auto) 1, Neutrophils (%) (Auto) 81H, Lymphocytes (%) (Auto) 10L, Monocytes (%) (Auto) 7, Eosinophils (%) (Auto) 1, Basophils (%) (Auto) 0, Neutrophils # (Auto) 9.2H, Lymphocytes # (Auto) 1.1, Monocytes # (Auto) 0.8, Eosinophils # (Auto) 0.2, Basophils # (Auto) 0.0, Immature Granulocyte # (Auto) 0.1 Clinical Quality Measures DVT/VTE Risk/Contraindication: Risk Factor Score Per Nursin RFS Level Per Nursing on Admit: 2=Moderate OMAR REYES MD Aug 05, 2020 10:33
--- NOTE | 2020-08-05 15:31 | NUR ---
CM/SS: Visited with pt as to plan for discharge - Pt WILL NOT be leaving on tomorrow as his labs, while improved, not improved enough and pt lives too far away for him to be dismissed due to his bleeding issues. Pt understands and reports that he will have another treatment on next Sunday. This worker shares with pt that his daughter Natacha called today asking about in home meals for him. She is given information about these services. Pt reports they are trying to get things in place prior to his discharge from the hospital. Telephone call from Natacha - [phone] - daughter of pt asking about delivered meals for pt. She has information on mom's meals and is given other information about deliver meal services. She will follow up.
[2020-08-05 16:00] VITALS: BP 116/71
[2020-08-05] MEDS: TAMSULOSIN 0.4 MG (FLOMAX) CAP PO SCH (18:42)
[2020-08-05] MEDS: MELATONIN 3 MG TABLET PO PRN (20:56)
[2020-08-06] VITALS: BP 113/69
[2020-08-06] MEDS: inSUlin ASPART (NovoLOG) 1 UNIT/0.01 ML (CHARGE PER UNIT) SC SCH ×4 (06:23→21:27)
[2020-08-06] MEDS: CATHETER FLUSH 10 ML SYR IV SCH ×3 (06:23→21:33)
[2020-08-06 08:00] VITALS: BP 115/74
[2020-08-06 09:00] LABS: BASOPHILS % (AUTO) 0 % (0-10); LYMPHOCYTES # (AUTO) 0.7 10^3/uL (1.0-4.0); LYMPHOCYTES % (AUTO) 5 % (12-44)
[2020-08-06 09:02] LABS: EOSINOPHILS # (AUTO) 0.1 10^3/uL (0.0-0.3); EOSINOPHILS % (AUTO) 1 % (0-10); HEMATOCRIT 36 % (40-54); HEMOGLOBIN 11.7 g/dL (13.3-17.7); MEAN CORPUSCULAR HEMOGLOBIN 30 pg (25-34); MEAN CORPUSCULAR HGB CONC 33 g/dL (32-36); MEAN CORPUSCULAR VOLUME 91 fL (80-99); MONOCYTES # (AUTO) 0.6 10^3/uL (0.0-1.0); MONOCYTES % (AUTO) 4 % (0-12); NEUTROPHILS # (AUTO) 12.7 10^3/uL (1.8-7.8); NEUTROPHILS % (AUTO) 89 % (42-75); WHITE BLOOD COUNT 14.3 10^3/uL (4.3-11.0)
[2020-08-06] MEDS: predniSONE 20 MG TAB PO SCH (09:04)
[2020-08-06] MEDS: lisINopril 40 MG (PRINIVIL) TABLET PO SCH (09:05)
[2020-08-06] MEDS: PRIMIDONE 50 MG TAB (MYSOLINE) PO SCH ×2 (09:05→18:00)
[2020-08-06] MEDS: DOCUSATE SODIUM 100 MG (COLACE) CAP PO SCH ×2 (09:05→21:27)
[2020-08-06] MEDS: SENNOSIDES 8.6 MG (SENOKOT) TAB PO SCH ×2 (09:05→21:27)
[2020-08-06] MEDS: FOLIC ACID 1 MG TAB PO SCH (09:05)
[2020-08-06] MEDS: PANTOPRAZOLE 40 MG (PROTONIX) TAB PO SCH (09:05)
[2020-08-06 09:08] LABS: PLATELET COUNT 9 10^3/uL (130-400)
[2020-08-06 09:16] LABS: POTASSIUM 4.3 MMOL/L (3.6-5.0)
[2020-08-06 09:17] LABS: CALCIUM 8.1 MG/DL (8.5-10.1)
[2020-08-06 09:21] LABS: CREATININE SERUM 1.19 MG/DL (0.60-1.30)
[2020-08-06 09:31] LABS: ANISOCYTOSIS SLIGHT; BAND NEUTROPHILS 0 %; BASOPHILS % (MANUAL) 0 %; EOSINOPHILS % (MANUAL) 0 %; LYMPHOCYTES % (MANUAL) 6 %; MONOCYTES % (MANUAL) 3 %; NEUTROPHILS % (MANUAL) 91 %
--- NOTE | 2020-08-06 15:16 | Progress Note ---
Progress Note Assessment/Plan Date Seen by Provider: Aug 06, 2020 Time Seen by Provider: 15:07 Events since last exam Pt is doing well. No bleeding. Plt is 9 today and Hb is 11.7 both are improving. He would like to go home if possible and safe. Assessment/Plan 1. ITP on high dose steroid. Plt is slowly improving to 9 today and Hb and WBC stable. No more bleeding so far. Bone marrow aspiration biopsy showed increased megakaryocytes with the rest of the cell lines unremarkable consistent with ITP. Patient received first dose of rituximab 07/27/2020 and 2nd dose on 08/03/2020. He will have weekly doses for 4 weeks. Next treatment will be 08/10/2020. Continue high dose of Prednisone 1 mg/kg daily. 2. Steroid induced DM. 3. Hyponatremia due to the elevated blood sugar. Pt lives in [place] and his home is 10 mins to [place] [facility]. I told patient the followin). If his Plt is over 10 tomorrow morning and Hb is stable and no bleeding event, he can go home tomorrow morning. He was very happy about it. He has arranged his son to orange picker machine operator him at 10am. 2). He needs to call me if he starts to have bleeding at home and going to [place] [facility] right away for a check up. I gave him my card with my cell phone for him to call if he needs. 3). We have arranged 2 units of O negative RBC at the [place] [facility] in case he needs the transfusion over there. 4). Continue Prednison 80mg daily, Protonix 40mg daily, Folic Acid 1mg daily on discharge for 2 weeks supply until he sees Dr Ropre on Sunday08/10/20 at the cancer center. I told his nurse to get these discharge medication ready for him. 5). Continue all other home medicine as shown on this admission. Vitals Last set of Vitals Signs Vital Signs Date Time Temp Pulse Resp B/P (MAP) Pulse Ox O2 Delivery O2 Flow Rate FiO2 08/06/20 09:00 Room Air 08/06/20 08:00 36.3 102 20 115/74 (88) 99 I&O I&O Intake and Output0 08/06/20 00:00 Intake Total 2830 ml Output Total 2775 ml Balance 55 ml Intake Oral 2830 ml Output Urine Total 2775 ml # Voids 2 Labs Laboratory Tests 08/06/20 08:55 Laboratory Tests 08/05/20 16:18: Glucometer 208H 08/05/20 20:28: Glucometer 189H 08/06/20 05:52: Glucometer 103 08/06/20 08:55: White Blood Count 14.3H, Red Blood Count 3.93L, Hemoglobin 11.7L, Hematocrit 36L , Mean Corpuscular Volume 91, Mean Corpuscular Hemoglobin 30, Mean Corpuscular Hemoglobin Concent 33, Red Cell Distribution Width 14.0, Platelet Count 9*L, Mean Platelet Volume , Immature Granulocyte % (Auto) 1, Neutrophils (%) (Auto) 89H, Lymphocytes (%) (Auto) 5L, Monocytes (%) (Auto) 4, Eosinophils (%) (Auto) 1, Basophils (%) (Auto) 0, Neutrophils # (Auto) 12.7H, Lymphocytes # (Auto) 0.7L , Monocytes # (Auto) 0.6, Eosinophils # (Auto) 0.1, Basophils # (Auto) 0.0, Immature Granulocyte # (Auto) 0.1, Neutrophils % (Manual) 91, Lymphocytes % (Manual) 6, Monocytes % (Manual) 3, Eosinophils % (Manual) 0, Basophils % (Manual) 0, Band Neutrophils 0, Anisocytosis SLIGHT, Sodium Level 126L, Potassium Level 4.3, Chloride Level 93L, Carbon Dioxide Level 19L, Anion Gap 14, Blood Urea Nitrogen 24H, Creatinine 1.19, Estimat Glomerular Filtration Rate 59, BUN/Creatinine Ratio 20, Glucose Level 282H, Calcium Level 8.1L 08/06/20 11:06: Glucometer 119H Clinical Quality Measures DVT/VTE Risk/Contraindication: Risk Factor Score Per Nursin RFS Level Per Nursing on Admit: 2=Moderate OMAR REYES MD Aug 06, 2020 15:16
[2020-08-06 16:00] VITALS: BP 110/70
[2020-08-06] MEDS: TAMSULOSIN 0.4 MG (FLOMAX) CAP PO SCH (18:00)
[2020-08-06] MEDS ORDERED: PRD20T PO (18:10)
[2020-08-06] MEDS ORDERED: PANT40TA52 PO (18:10)
[2020-08-06] MEDS: MELATONIN 3 MG TABLET PO PRN (21:33)
[2020-08-06 23:44] VITALS: BP 108/71
[2020-08-07] MEDS: inSUlin ASPART (NovoLOG) 1 UNIT/0.01 ML (CHARGE PER UNIT) SC SCH (05:26)
[2020-08-07 06:07] LABS: BASOPHILS % (AUTO) 0 % (0-10); EOSINOPHILS # (AUTO) 0.1 10^3/uL (0.0-0.3); EOSINOPHILS % (AUTO) 1 % (0-10); HEMATOCRIT 37 % (40-54); HEMOGLOBIN 12.5 g/dL (13.3-17.7); LYMPHOCYTES # (AUTO) 1.1 10^3/uL (1.0-4.0); LYMPHOCYTES % (AUTO) 10 % (12-44); MEAN CORPUSCULAR HEMOGLOBIN 31 pg (25-34); MEAN CORPUSCULAR HGB CONC 34 g/dL (32-36); MEAN CORPUSCULAR VOLUME 90 fL (80-99); MONOCYTES # (AUTO) 0.7 10^3/uL (0.0-1.0); MONOCYTES % (AUTO) 7 % (0-12); NEUTROPHILS # (AUTO) 8.9 10^3/uL (1.8-7.8); NEUTROPHILS % (AUTO) 81 % (42-75); WHITE BLOOD COUNT 11.1 10^3/uL (4.3-11.0)
[2020-08-07 06:11] LABS: PLATELET COUNT 12 10^3/uL (130-400)
--- NOTE | 2020-08-07 06:16 | NUR ---
Patient has critical lab value, platelet count 12. Contacted Dr Pan. Verified Hgb. Per Dr Pan patient may discharge today.
[2020-08-07] MEDS: CATHETER FLUSH 10 ML SYR IV SCH (06:21)
[2020-08-07 06:26] LABS: CHLORIDE 93 MMOL/L (98-107); SODIUM 126 MMOL/L (135-145)
[2020-08-07 06:27] LABS: CALCIUM 8.5 MG/DL (8.5-10.1)
[2020-08-07 06:28] LABS: GLUCOSE 105 MG/DL (70-105)
[2020-08-07 06:29] LABS: CARBON DIOXIDE 23 MMOL/L (21-32)
[2020-08-07 06:32] LABS: CREATININE SERUM 0.88 MG/DL (0.60-1.30); GFR ESTIMATED > 60
[2020-08-07 06:33] LABS: BUN/CREATININE RATIO 23
[2020-08-07 08:03] VITALS: BP 130/81
[2020-08-07] MEDS: PANTOPRAZOLE 40 MG (PROTONIX) TAB PO SCH (08:42)
[2020-08-07] MEDS: FOLIC ACID 1 MG TAB PO SCH (08:42)
[2020-08-07] MEDS: lisINopril 40 MG (PRINIVIL) TABLET PO SCH (08:42)
[2020-08-07] MEDS: SENNOSIDES 8.6 MG (SENOKOT) TAB PO SCH (08:42)
[2020-08-07] MEDS: PRIMIDONE 50 MG TAB (MYSOLINE) PO SCH (08:42)
[2020-08-07] MEDS: predniSONE 20 MG TAB PO SCH (08:42)
[2020-08-07] MEDS: DOCUSATE SODIUM 100 MG (COLACE) CAP PO SCH (08:42)
[2020-08-07 09:25] VITALS: BP 130/81
--- NOTE | 2020-08-09 09:55 | Discharge Summary ---
Diagnosis/Chief Complaint Date of Admission Jul 20, 2020 at 17:25 Date of Discharge Aug 07, 2020 at 09:25 Discharge Date: Aug 07, 2020 Discharge Time: 09:25 Admission Diagnosis Admission Diagnosis Thrombocytopenia, Bleeding Anemia Discharge Diagnosis ITP per bone marrow exam Bleeding Anemia Reason Hospital Visit Bleeding and low Plt Discharge Summary Hospital Course Was the Problem List Reviewed?: Yes Hospital Course Mr. Saldana is a 79 year old white man admitted for nose, gum and GI bleeding/black stool and anemia with Plt number 0. His plt was stayed at 1 for many days. He had to have Plt transfusion on the 07/24/2020 and his plt was up to 18. Dr Roper did a bone marrow which showed increased megakaryocytes with the rest of the cell lines unremarkable consistent with ITP. Pt was treated with high dose steroid Prednisone 80mg daily and weekly Rituxan on 07/27, 08/03. His plt was very slowly improved, bleeding stopped and Hb slowly improved. He wanted to go home very badly. When his Plt was above 10, he was discharged home. Discharge condition: Stable, improved. Plt 12, Hb 12.5 f/u: with Dr Roper on 08/10/2020 and get his 3rd dose Rituxane. New medications on the discharge: Prednisone 80mg daily, Protonix 40mg daily and Folic acid 1mg daily. Labs Laboratory Tests 08/06/20 11:06: Glucometer 119H 08/06/20 15:55: Glucometer 231H 08/06/20 20:05: Glucometer 204H 08/07/20 05:20: White Blood Count 11.1H, Red Blood Count 4.09L, Hemoglobin 12.5L, Hematocrit 37L , Platelet Count 12*L, Neutrophils (%) (Auto) 81H, Lymphocytes (%) (Auto) 10L, Neutrophils # (Auto) 8.9H, Immature Granulocyte # (Auto) 0.2H, Sodium Level 126L , Chloride Level 93L, Blood Urea Nitrogen 20H 08/07/20 05:23: Procedures None. Discharge Physical Examination Allergies: Coded Allergies: No Known Drug Allergies (Unverified , 07/20/20) Vitals & I&Os Vital Signs Date Time Temp Pulse Resp B/P (MAP) Pulse Ox O2 Delivery O2 Flow Rate FiO2 08/07/20 09:25 35.8 83 20 130/81 95 Room Air 2.00 Discharge Home Medications Reviewed and agree with Discharge Medication list on patient's Discharge Instruction sheet Instructions to Patient/Family Please see electronic discharge instructions given to patient. Clinical Quality Measures DVT/VTE Risk/Contraindication: Risk Factor Score Per Nursin RFS Level Per Nursing on Admit: 2=Moderate OMAR REYES MD Aug 09, 2020 09:55
== END 2020-08-07 09:25 | disposition home or self-care (01) | DRG 813 ==
LOC: EDUNIT# 13:20 → ER FS 13:23 → 4TH 17:25
PROVIDERS: ADMIT Internal Medicine; ATTEND Internal Medicine Hematology & Oncology
PROC: 07DR3ZX Extraction of Iliac Bone Marrow, Percutaneous Approach, Diagnostic (ICD-10-PCS; principal; 2020-07-23)
DX: D69.3 Immune thrombocytopenic purpura (principal); R04.2 Hemoptysis; E87.1 Hypo-osmolality and hyponatremia; R19.5 Other fecal abnormalities; K64.9 Unspecified hemorrhoids; D64.9 Anemia, unspecified; G40.909 Epilepsy, unspecified, not intractable, without status epilepticus; I10 Essential (primary) hypertension; M19.91 Primary osteoarthritis, unspecified site; E78.00 Pure hypercholesterolemia, unspecified; N40.0 Benign prostatic hyperplasia without lower urinary tract symptoms; K21.9 Gastro-esophageal reflux disease without esophagitis; E66.9 Obesity, unspecified; F41.9 Anxiety disorder, unspecified; E09.9 Drug or chemical induced diabetes mellitus without complications; T38.0X5A Adverse effect of glucocorticoids and synthetic analogues, initial encounter; Z79.84 Long term (current) use of oral hypoglycemic drugs; Z85.828 Personal history of other malignant neoplasm of skin; Z68.37 Body mass index [BMI] 37.0-37.9, adult
CPT/HCPCS: 36415; 38222; 71046; 77012; 80048; 80053; 82274; 82962; 83615; 85007; 85025; 85027; 85045; 85610; 86900; 86901; 88184; 88185; 88305; 88311; 88313; 88377; 96375; 96413; 96415; 99156

== ENCOUNTER 2020-10-06 09:36 | Outpatient (RCR) | payer MEDICARE, OTHER ==
[2020-07-27 21:36] LABS: HEPATITIS C ANTIBODY C Non-Reactive (Non-Reactive)
[2020-08-10 09:19] LABS: BASOPHILS % (AUTO) 0 % (0-10); EOSINOPHILS % (AUTO) 0 % (0-10); HEMATOCRIT 38 % (40-54); HEMOGLOBIN 12.9 g/dL (13.3-17.7); MEAN CORPUSCULAR HGB CONC 34 g/dL (32-36); MONOCYTES # (AUTO) 0.2 10^3/uL (0.0-1.0); MONOCYTES % (AUTO) 2 % (0-12)
[2020-08-10 09:21] LABS: LYMPHOCYTES # (AUTO) 0.3 10^3/uL (1.0-4.0); LYMPHOCYTES % (AUTO) 3 % (12-44); MEAN CORPUSCULAR HEMOGLOBIN 30 pg (25-34); MEAN CORPUSCULAR VOLUME 88 fL (80-99); MEAN PLATELET VOLUME 10.8 fL (9.0-12.2); NEUTROPHILS # (AUTO) 9.9 10^3/uL (1.8-7.8); NEUTROPHILS % (AUTO) 94 % (42-75); PLATELET COUNT 54 10^3/uL (130-400); WHITE BLOOD COUNT 10.5 10^3/uL (4.3-11.0)
[2020-08-10 09:45] LABS: ALANINE AMINOTRANSFERASE 31 U/L (0-55); ALBUMIN 3.9 GM/DL (3.2-4.5); ALKALINE PHOSPHATASE 47 U/L (40-136); BILIRUBIN,TOTAL 0.5 MG/DL (0.1-1.0); BUN/CREATININE RATIO 31; CALCIUM 8.6 MG/DL (8.5-10.1); CARBON DIOXIDE 21 MMOL/L (21-32); CHLORIDE 91 MMOL/L (98-107); CREATININE SERUM 0.97 MG/DL (0.60-1.30); GFR ESTIMATED > 60; GLUCOSE 157 MG/DL (70-105); POTASSIUM 5.2 MMOL/L (3.6-5.0); TOTAL PROTEIN 6.8 GM/DL (6.4-8.2)
[2020-08-10 09:48] LABS: SODIUM 122 MMOL/L (135-145)
[2020-08-17 09:14] LABS: BASOPHILS % (AUTO) 0 % (0-10); EOSINOPHILS # (AUTO) 0.1 10^3/uL (0.0-0.3); EOSINOPHILS % (AUTO) 1 % (0-10); HEMATOCRIT 38 % (40-54); HEMOGLOBIN 12.9 g/dL (13.3-17.7); LYMPHOCYTES # (AUTO) 0.5 10^3/uL (1.0-4.0); LYMPHOCYTES % (AUTO) 4 % (12-44); MEAN CORPUSCULAR HEMOGLOBIN 30 pg (25-34); MEAN CORPUSCULAR HGB CONC 34 g/dL (32-36); MEAN CORPUSCULAR VOLUME 88 fL (80-99); MEAN PLATELET VOLUME 9.9 fL (9.0-12.2); MONOCYTES # (AUTO) 0.7 10^3/uL (0.0-1.0); MONOCYTES % (AUTO) 5 % (0-12); NEUTROPHILS # (AUTO) 11.2 10^3/uL (1.8-7.8); NEUTROPHILS % (AUTO) 89 % (42-75); PLATELET COUNT 123 10^3/uL (130-400); WHITE BLOOD COUNT 12.7 10^3/uL (4.3-11.0)
[2020-08-17 09:33] LABS: BUN/CREATININE RATIO 35; CARBON DIOXIDE 23 MMOL/L (21-32); CHLORIDE 94 MMOL/L (98-107); CREATININE SERUM 0.88 MG/DL (0.60-1.30); GFR ESTIMATED > 60; GLUCOSE 143 MG/DL (70-105); POTASSIUM 4.3 MMOL/L (3.6-5.0)
[2020-08-17 09:44] LABS: SODIUM 125 MMOL/L (135-145)
[2020-09-01 11:01] LABS: BASOPHILS % (AUTO) 0 % (0-10); EOSINOPHILS # (AUTO) 0.1 10^3/uL (0.0-0.3); EOSINOPHILS % (AUTO) 1 % (0-10); HEMATOCRIT 40 % (40-54); HEMOGLOBIN 12.8 g/dL (13.3-17.7); LYMPHOCYTES # (AUTO) 0.2 10^3/uL (1.0-4.0); LYMPHOCYTES % (AUTO) 2 % (12-44); MEAN CORPUSCULAR HEMOGLOBIN 29 pg (25-34); MEAN CORPUSCULAR HGB CONC 32 g/dL (32-36); MEAN CORPUSCULAR VOLUME 91 fL (80-99); MEAN PLATELET VOLUME 9.8 fL (9.0-12.2); MONOCYTES # (AUTO) 0.5 10^3/uL (0.0-1.0); MONOCYTES % (AUTO) 4 % (0-12); NEUTROPHILS # (AUTO) 9.6 10^3/uL (1.8-7.8); NEUTROPHILS % (AUTO) 91 % (42-75); PLATELET COUNT 152 10^3/uL (130-400); WHITE BLOOD COUNT 10.5 10^3/uL (4.3-11.0)
[2020-09-01 11:16] LABS: ALANINE AMINOTRANSFERASE 30 U/L (0-55); ALBUMIN 3.8 GM/DL (3.2-4.5); ALKALINE PHOSPHATASE 44 U/L (40-136); BILIRUBIN,TOTAL 0.3 MG/DL (0.1-1.0); BUN/CREATININE RATIO 30; CALCIUM 9.2 MG/DL (8.5-10.1); CARBON DIOXIDE 24 MMOL/L (21-32); CHLORIDE 98 MMOL/L (98-107); CREATININE SERUM 0.91 MG/DL (0.60-1.30); GFR ESTIMATED > 60; GLUCOSE 189 MG/DL (70-105); POTASSIUM 4.6 MMOL/L (3.6-5.0); SODIUM 134 MMOL/L (135-145); TOTAL PROTEIN 6.5 GM/DL (6.4-8.2)
[2020-09-07 10:38] LABS: BASOPHILS % (AUTO) 0 % (0-10); EOSINOPHILS # (AUTO) 0.1 10^3/uL (0.0-0.3); EOSINOPHILS % (AUTO) 1 % (0-10); HEMATOCRIT 41 % (40-54); LYMPHOCYTES # (AUTO) 0.4 10^3/uL (1.0-4.0); LYMPHOCYTES % (AUTO) 3 % (12-44); MEAN CORPUSCULAR HEMOGLOBIN 29 pg (25-34); MEAN CORPUSCULAR HGB CONC 32 g/dL (32-36); MEAN CORPUSCULAR VOLUME 90 fL (80-99); MEAN PLATELET VOLUME 9.3 fL (9.0-12.2); MONOCYTES # (AUTO) 0.5 10^3/uL (0.0-1.0); MONOCYTES % (AUTO) 4 % (0-12); NEUTROPHILS # (AUTO) 11.1 10^3/uL (1.8-7.8); NEUTROPHILS % (AUTO) 90 % (42-75); PLATELET COUNT 204 10^3/uL (130-400); WHITE BLOOD COUNT 12.4 10^3/uL (4.3-11.0)
[2020-09-14 09:50] LABS: BASOPHILS # (AUTO) 0.1 10^3/uL (0.0-0.1); BASOPHILS % (AUTO) 0 % (0-10); EOSINOPHILS # (AUTO) 0.2 10^3/uL (0.0-0.3); EOSINOPHILS % (AUTO) 2 % (0-10); HEMATOCRIT 40 % (40-54); HEMOGLOBIN 12.9 g/dL (13.3-17.7); LYMPHOCYTES # (AUTO) 0.5 10^3/uL (1.0-4.0); LYMPHOCYTES % (AUTO) 4 % (12-44); MEAN CORPUSCULAR HEMOGLOBIN 29 pg (25-34); MEAN CORPUSCULAR HGB CONC 32 g/dL (32-36); MEAN CORPUSCULAR VOLUME 90 fL (80-99); MONOCYTES # (AUTO) 0.8 10^3/uL (0.0-1.0); MONOCYTES % (AUTO) 6 % (0-12); NEUTROPHILS # (AUTO) 10.9 10^3/uL (1.8-7.8); NEUTROPHILS % (AUTO) 87 % (42-75); PLATELET COUNT 200 10^3/uL (130-400); WHITE BLOOD COUNT 12.6 10^3/uL (4.3-11.0)
[~2020-10-06 09:36] MED LIST: ACETAMINOPHEN 325 MG TAB (TYLENOL) CANCER CTR ONE; ACETAMINOPHEN 325 MG TAB (TYLENOL) CANCER CTR PO PRN; FURO20TA4 PO; IBUP-1780 PO; LISI-552 PO; MENTHOL TOP; METF-397 PO; METH57CR TP; METHYL SALICYLATE TOP; NS IV 1000 ML (CANCER CTR) IV SCH; NS IV 500 ML (CANCER CENTER) 500 ML ONE; OMEP20CA18 PO; PANT40TA52 PO; PRD20T PO; PRIM50TA33 PO; RITUXIMAB-ABBS 500 MG, RITUXIMAB-ABBS 300 MG in NS (IVPB) CANCER CENTER 186 ML IV SCH; SILD100T67 PO; TMSL.4C PO; diphenhydrAMINE 25 MG TAB (BENADRYL) CANCER CENTER PO SCH; diphenhydrAMINE 50 MG/ML INJ (CANCER CENTER) IV PRN
[2020-10-06 09:55] LABS: BASOPHILS % (AUTO) 1 % (0-10); EOSINOPHILS # (AUTO) 0.3 10^3/uL (0.0-0.3); EOSINOPHILS % (AUTO) 3 % (0-10); HEMATOCRIT 41 % (40-54); HEMOGLOBIN 12.6 g/dL (13.3-17.7); LYMPHOCYTES # (AUTO) 1.2 10^3/uL (1.0-4.0); LYMPHOCYTES % (AUTO) 15 % (12-44); MEAN CORPUSCULAR HEMOGLOBIN 28 pg (25-34); MEAN CORPUSCULAR HGB CONC 31 g/dL (32-36); MEAN CORPUSCULAR VOLUME 90 fL (80-99); MEAN PLATELET VOLUME 10.5 fL (9.0-12.2); MONOCYTES # (AUTO) 0.9 10^3/uL (0.0-1.0); MONOCYTES % (AUTO) 11 % (0-12); NEUTROPHILS # (AUTO) 5.5 10^3/uL (1.8-7.8); NEUTROPHILS % (AUTO) 69 % (42-75); PLATELET COUNT 203 10^3/uL (130-400)
[2020-10-06 10:18] LABS: ALANINE AMINOTRANSFERASE 20 U/L (0-55); ALBUMIN 3.8 GM/DL (3.2-4.5); ALKALINE PHOSPHATASE 57 U/L (40-136); BILIRUBIN,TOTAL 0.3 MG/DL (0.1-1.0); BUN/CREATININE RATIO 26; CALCIUM 8.7 MG/DL (8.5-10.1); CARBON DIOXIDE 24 MMOL/L (21-32); CHLORIDE 104 MMOL/L (98-107); CREATININE SERUM 0.93 MG/DL (0.60-1.30); GFR ESTIMATED > 60; GLUCOSE 153 MG/DL (70-105); POTASSIUM 4.4 MMOL/L (3.6-5.0); SODIUM 136 MMOL/L (135-145); TOTAL PROTEIN 6.5 GM/DL (6.4-8.2)
== END 2020-11-08 | disposition home or self-care (01) ==
LOC: ONC 09:36
PROVIDERS: ATTEND Internal Medicine Hematology & Oncology
DX: Z51.11 Encounter for antineoplastic chemotherapy (principal); D69.3 Immune thrombocytopenic purpura
CPT/HCPCS: 36415; 80048; 80053; 80074; 83615; 85025; 96413; 99213

== ENCOUNTER 2020-12-28 09:43 | Outpatient (RCR) | payer OTHER ==
[~2020-12-28 09:43] MED LIST changes: -ACETAMINOPHEN 325 MG TAB (TYLENOL) CANCER CTR ONE; -ACETAMINOPHEN 325 MG TAB (TYLENOL) CANCER CTR PO PRN; -LISI-552 PO; +LISI20TA26 PO; -NS IV 1000 ML (CANCER CTR) IV SCH; -NS IV 500 ML (CANCER CENTER) 500 ML ONE; -RITUXIMAB-ABBS 500 MG, RITUXIMAB-ABBS 300 MG in NS (IVPB) CANCER CENTER 186 ML IV SCH; -diphenhydrAMINE 25 MG TAB (BENADRYL) CANCER CENTER PO SCH; -diphenhydrAMINE 50 MG/ML INJ (CANCER CENTER) IV PRN
[2020-12-28 10:07] LABS: BASOPHILS # (AUTO) 0.1 10^3/uL (0.0-0.1); BASOPHILS % (AUTO) 1 % (0-10); EOSINOPHILS # (AUTO) 0.4 10^3/uL (0.0-0.3); EOSINOPHILS % (AUTO) 7 % (0-10); HEMATOCRIT 39 % (40-54); HEMOGLOBIN 12.3 g/dL (13.3-17.7); LYMPHOCYTES # (AUTO) 0.7 10^3/uL (1.0-4.0); LYMPHOCYTES % (AUTO) 13 % (12-44); MEAN CORPUSCULAR HEMOGLOBIN 28 pg (25-34); MEAN CORPUSCULAR HGB CONC 32 g/dL (32-36); MEAN CORPUSCULAR VOLUME 87 fL (80-99); MEAN PLATELET VOLUME 10.6 fL (9.0-12.2); MONOCYTES # (AUTO) 0.8 10^3/uL (0.0-1.0); MONOCYTES % (AUTO) 14 % (0-12); NEUTROPHILS # (AUTO) 3.3 10^3/uL (1.8-7.8); NEUTROPHILS % (AUTO) 64 % (42-75); PLATELET COUNT 187 10^3/uL (130-400); WHITE BLOOD COUNT 5.3 10^3/uL (4.3-11.0)
[2020-12-28 10:21] LABS: ALANINE AMINOTRANSFERASE 27 U/L (0-55); ALBUMIN 3.9 GM/DL (3.2-4.5); ALKALINE PHOSPHATASE 76 U/L (40-136); BILIRUBIN,TOTAL 0.3 MG/DL (0.1-1.0); BUN/CREATININE RATIO 27; CALCIUM 8.9 MG/DL (8.5-10.1); CARBON DIOXIDE 24 MMOL/L (21-32); CHLORIDE 106 MMOL/L (98-107); CREATININE SERUM 0.94 MG/DL (0.60-1.30); GFR ESTIMATED > 60; GLUCOSE 152 MG/DL (70-105); POTASSIUM 4.6 MMOL/L (3.6-5.0); SODIUM 139 MMOL/L (135-145)
== END 2021-03-28 | disposition home or self-care (01) ==
LOC: ONC 09:43
PROVIDERS: ATTEND Internal Medicine Hematology & Oncology
DX: D69.3 Immune thrombocytopenic purpura (principal)
CPT/HCPCS: 80053; 83615; 85025; 99213

== ENCOUNTER 2021-03-29 12:36 | Outpatient (RCR) | payer OTHER ==
[2021-03-29 12:56] LABS: BASOPHILS % (AUTO) 1 % (0-10); EOSINOPHILS # (AUTO) 0.2 10^3/uL (0.0-0.3); EOSINOPHILS % (AUTO) 4 % (0-10); HEMATOCRIT 42 % (40-54); HEMOGLOBIN 13.4 g/dL (13.3-17.7); LYMPHOCYTES % (AUTO) 16 % (12-44); MEAN CORPUSCULAR HEMOGLOBIN 28 pg (25-34); MEAN CORPUSCULAR HGB CONC 32 g/dL (32-36); MEAN CORPUSCULAR VOLUME 87 fL (80-99); MEAN PLATELET VOLUME 10.2 fL (9.0-12.2); MONOCYTES # (AUTO) 0.6 10^3/uL (0.0-1.0); MONOCYTES % (AUTO) 10 % (0-12); NEUTROPHILS # (AUTO) 4.3 10^3/uL (1.8-7.8); NEUTROPHILS % (AUTO) 70 % (42-75); PLATELET COUNT 191 10^3/uL (130-400); WHITE BLOOD COUNT 6.2 10^3/uL (4.3-11.0)
[2021-03-29 13:15] LABS: ALANINE AMINOTRANSFERASE 24 U/L (0-55); ALBUMIN 3.9 GM/DL (3.2-4.5); ALKALINE PHOSPHATASE 64 U/L (40-136); BILIRUBIN,TOTAL 0.4 MG/DL (0.1-1.0); BUN/CREATININE RATIO 21; CALCIUM 9.2 MG/DL (8.5-10.1); CARBON DIOXIDE 26 MMOL/L (21-32); CHLORIDE 108 MMOL/L (98-107); CREATININE SERUM 0.98 MG/DL (0.60-1.30); GFR ESTIMATED > 60; GLUCOSE 101 MG/DL (70-105); POTASSIUM 4.5 MMOL/L (3.6-5.0); SODIUM 141 MMOL/L (135-145); TOTAL PROTEIN 6.7 GM/DL (6.4-8.2)
== END 2021-06-24 09:21 | disposition home or self-care (01) ==
LOC: ONC 12:36
PROVIDERS: ATTEND Internal Medicine Hematology & Oncology
DX: D69.3 Immune thrombocytopenic purpura (principal); Z79.899 Other long term (current) drug therapy
CPT/HCPCS: 80053; 83615; 85025; 99213

== ENCOUNTER → 2021-06-28 | Outpatient (CLI) | payer OTHER ==
[2021-06-28 09:13] LABS: HEMOGLOBIN 13.1 g/dL (13.3-17.7); MEAN CORPUSCULAR HEMOGLOBIN 29 pg (25-34); MEAN CORPUSCULAR VOLUME 92 fL (80-99); MEAN PLATELET VOLUME 10.9 fL (9.0-12.2)
[2021-06-28 09:14] LABS: BASOPHILS % (AUTO) 1 % (0-10); EOSINOPHILS # (AUTO) 0.2 10^3/uL (0.0-0.3); EOSINOPHILS % (AUTO) 3 % (0-10); HEMATOCRIT 41 % (40-54); LYMPHOCYTES % (AUTO) 17 % (12-44); MEAN CORPUSCULAR HGB CONC 32 g/dL (32-36); MONOCYTES # (AUTO) 0.6 10^3/uL (0.0-1.0); MONOCYTES % (AUTO) 10 % (0-12); NEUTROPHILS # (AUTO) 3.9 10^3/uL (1.8-7.8); NEUTROPHILS % (AUTO) 68 % (42-75); PLATELET COUNT 82 10^3/uL (130-400); WHITE BLOOD COUNT 5.8 10^3/uL (4.3-11.0)
[2021-06-28 09:35] LABS: ALBUMIN 3.9 GM/DL (3.2-4.5); BILIRUBIN,TOTAL 0.5 MG/DL (0.1-1.0); CALCIUM 9.4 MG/DL (8.5-10.1); CREATININE SERUM 0.86 MG/DL (0.60-1.30); POTASSIUM 4.2 MMOL/L (3.6-5.0); TOTAL PROTEIN 6.7 GM/DL (6.4-8.2)
== END | disposition home or self-care (01) ==
LOC: ONC 08:46
PROVIDERS: ATTEND Internal Medicine Hematology & Oncology
DX: D69.3 Immune thrombocytopenic purpura (principal); Z98.890 Other specified postprocedural states
CPT/HCPCS: 80053; 83615; 85025; 99213

== ENCOUNTER → 2021-07-05 | Outpatient (CLI) | payer OTHER | LOC: ORTHO 08:43 | PROVIDERS: ATTEND Orthopaedic Surgery | DX: M17.11 Unilateral primary osteoarthritis, right knee (principal) | CPT/HCPCS: 99203 ==

== ENCOUNTER → 2021-07-12 | Outpatient (CLI) | payer OTHER | LOC: ORTHO 08:40 → MERGE 08:40 | PROVIDERS: ATTEND Orthopaedic Surgery | DX: M17.11 Unilateral primary osteoarthritis, right knee (principal) | CPT/HCPCS: 20610 ==

== ENCOUNTER 2021-10-18 10:31 | Outpatient (RCR) | payer OTHER ==
[2021-07-26 10:54] LABS: BASOPHILS # (AUTO) 0.1 10^3/uL (0.0-0.1); BASOPHILS % (AUTO) 1 % (0-10); EOSINOPHILS # (AUTO) 0.2 10^3/uL (0.0-0.3); EOSINOPHILS % (AUTO) 2 % (0-10); HEMATOCRIT 47 % (40-54); HEMOGLOBIN 15.2 g/dL (13.3-17.7); LYMPHOCYTES # (AUTO) 1.1 10^3/uL (1.0-4.0); LYMPHOCYTES % (AUTO) 12 % (12-44); MEAN CORPUSCULAR HEMOGLOBIN 29 pg (25-34); MEAN CORPUSCULAR HGB CONC 33 g/dL (32-36); MEAN CORPUSCULAR VOLUME 90 fL (80-99); MEAN PLATELET VOLUME 10.2 fL (9.0-12.2); MONOCYTES # (AUTO) 0.7 10^3/uL (0.0-1.0); MONOCYTES % (AUTO) 8 % (0-12); NEUTROPHILS # (AUTO) 6.7 10^3/uL (1.8-7.8); NEUTROPHILS % (AUTO) 76 % (42-75); PLATELET COUNT 123 10^3/uL (130-400); WHITE BLOOD COUNT 8.8 10^3/uL (4.3-11.0)
[2021-10-18 11:19] LABS: BASOPHILS % (AUTO) 1 % (0-10); EOSINOPHILS # (AUTO) 0.3 10^3/uL (0.0-0.3); EOSINOPHILS % (AUTO) 5 % (0-10); HEMATOCRIT 42 % (40-54); HEMOGLOBIN 13.3 g/dL (13.3-17.7); LYMPHOCYTES # (AUTO) 0.9 10^3/uL (1.0-4.0); LYMPHOCYTES % (AUTO) 15 % (12-44); MEAN CORPUSCULAR HEMOGLOBIN 28 pg (25-34); MEAN CORPUSCULAR HGB CONC 32 g/dL (32-36); MEAN CORPUSCULAR VOLUME 90 fL (80-99); MEAN PLATELET VOLUME 9.6 fL (9.0-12.2); MONOCYTES # (AUTO) 0.6 10^3/uL (0.0-1.0); MONOCYTES % (AUTO) 9 % (0-12); NEUTROPHILS # (AUTO) 4.4 10^3/uL (1.8-7.8); NEUTROPHILS % (AUTO) 70 % (42-75); PLATELET COUNT 266 10^3/uL (130-400); WHITE BLOOD COUNT 6.3 10^3/uL (4.3-11.0)
[2021-10-18 11:41] LABS: ALBUMIN 3.8 GM/DL (3.2-4.5); BILIRUBIN,TOTAL 0.4 MG/DL (0.1-1.0); CALCIUM 9.4 MG/DL (8.5-10.1); CREATININE SERUM 0.91 MG/DL (0.60-1.30); POTASSIUM 4.4 MMOL/L (3.6-5.0); TOTAL PROTEIN 7.4 GM/DL (6.4-8.2)
== END 2021-10-21 | disposition home or self-care (01) ==
LOC: ONC 10:31
PROVIDERS: ATTEND Internal Medicine Hematology & Oncology
DX: D69.3 Immune thrombocytopenic purpura (principal)
CPT/HCPCS: 80053; 83615; 85025; 99213

== ENCOUNTER → 2021-10-20 | Outpatient (CLI) | payer OTHER | LOC: ORTHO 12:10 | PROVIDERS: ATTEND Orthopaedic Surgery | DX: M17.11 Unilateral primary osteoarthritis, right knee (principal) | CPT/HCPCS: 20610 ==

== ENCOUNTER → 2022-01-17 | Outpatient (CLI) | payer OTHER | LOC: ORTHO 13:00 | PROVIDERS: ATTEND Orthopaedic Surgery | DX: M17.11 Unilateral primary osteoarthritis, right knee (principal) | CPT/HCPCS: 20610 ==

== ENCOUNTER → 2022-05-02 | Outpatient (CLI) | payer OTHER | LOC: ORTHO 13:03 | PROVIDERS: ATTEND Orthopaedic Surgery | DX: M17.11 Unilateral primary osteoarthritis, right knee (principal) | CPT/HCPCS: 20610 ==

== ENCOUNTER → 2022-07-12 | Outpatient (CLI) | payer OTHER ==
--- NOTE | 2022-07-12 16:15 | Diagnostic Imaging Report ---
INDICATION: Fall, with right knee pain. FINDINGS: AP and lateral views of right knee reveal moderate diffuse joint space narrowing with chondrocalcinosis and apparent calcific loose bodies in the joint. Articular surfaces are slightly irregular on the lateral image, which may be due to osteoarthritis. No acute fracture or hemarthrosis is identified. IMPRESSION: Advanced degenerative findings without evidence of acute osseous abnormality. Dictated by: Dictated on workstation # [id number]
== END ==
LOC: ORTHO 14:57
PROVIDERS: ATTEND Orthopaedic Surgery
DX: M17.11 Unilateral primary osteoarthritis, right knee (principal); W19.XXXA Unspecified fall, initial encounter
CPT/HCPCS: 73560; 99213